=== PATIENT | male | born 1970 | race African-American/Black ===

== ENCOUNTER 2018-10-25 10:17 | Observation (INO) | payer OTHER ==
--- NOTE | 2018-10-25 10:55 | EKG ---
Test Date: 2018-10-25 Test Time: 10:31:25 Medical Radiation Tech: RENEE MEASUREMENT RESULTS: Intervals: Rate: 58 ND: 184 QRSD: 92 QT: 408 QTc: 400 [place]: P: 78 ND: 184 QRS: 63 T: 57 INTERPRETIVE STATEMENTS: Sinus bradycardia Otherwise normal ECG Electronically Signed On 10-25-18 10:54:42 STANDARDS ANALYST by Aston Umanzor
[2018-10-25 10:59] LABS: Absolute Lymphocytes (CBC) 1.8 K/uL (0.7-4.9); Absolute Monocytes 0.3 K/uL (0.1-1.3); Absolute Neutrophil 1.9 K/uL (1.8-8.0); Basophils % 0.8 % (0-1.3); Eosinophils % 2.2 % (0-4.4); Hematocrit 43.3 % (39.6-49.0); Lymphocytes % 43.3 % (15.3-44.8); MPV 9.8 fL (7.6-11.3); Monocytes % 7.8 % (3.3-12.3)
--- NOTE | 2018-10-25 11:11 | RAD REPORT ---
EXAM DESCRIPTION: Tian Single View10/25/2018 11:06 am CLINICAL HISTORY: Chest pain COMPARISON: none FINDINGS: The lungs appear clear of acute infiltrate. The heart is normal size IMPRESSION: No acute abnormalities displayed
[2018-10-25] MEDS ORDERED: ASPIRIN 81 MG CHEWABLE TABLET ONE (11:13)
[2018-10-25 11:16] LABS: Protime INR 1.13
[2018-10-25 11:18] LABS: ALT/SGPT 39 U/L (12-78); AST/SGOT 22 U/L (15-37); Albumin 4.4 g/dL (3.4-5.0); Alkaline Phosphatase 51 U/L (45-117); BUN Blood Urea Nitrogen 11 mg/dL (7-18); Bicarbonate 29 mmol/L (21-32); Bilirubin Direct 0.2 mg/dL (0-0.2); Bilirubin Total 0.7 mg/dL (0.2-1.0); Glucose Level 92 mg/dL (74-106); Magnesium 2.3 mg/dL (1.8-2.4); NT PRO-BNP 8 pg/mL (<125); Potassium 4.3 mmol/L (3.5-5.1); Protein, Total 7.4 g/dL (6.4-8.2); Sodium Level 143 mmol/L (136-145); Troponin (Emerg Dept Use Only) < 0.02 ng/mL (0.0-0.045)
[2018-10-25] MEDS ORDERED: HYDROCODONE/APAP 5/325 MG TAB ONE (12:18)
--- NOTE | 2018-10-25 14:55 | EDPHYS ---
Physician Documentation [facility] Name: Brian Feliz Age: 48 yrs Sex: Male : 1970 Arrival Date: 10/25/2018 Time: 10:20 Bed 17 Private MD: Fer Pineda T ED Physician Hung Mendiola HPI: 10/25 11:44 This 48 yrs old Black Male presents to ER via Ambulatory with complaints of Chest Pain. snw 11:44 Onset: The symptoms/episode began/occurred suddenly, this morning, similar s/s last snw week. Associated signs and symptoms: Pertinent positives: pt feels heart rate and blood pressure has been higher than his norm. Modifying factors: The patient symptoms are alleviated by time. once last week. The patient has not recently seen a physician, the patient's primary care provider is Dr. Dr. Pineda. Historical: - Allergies: 10:29 No Known Allergies; hb - Home Meds: 10:29 ProAir HFA 90 mcg/actuation inhalation HFAA [Active]; Flovent HFA inhalation inhalation hb [Active]; - PMHx: 10:29 Asthma; hb - PSHx: 10:29 Back; hb - Immunization history:: Adult Immunizations up to date. - Social history:: Smoking status: Patient/guardian denies using tobacco. - Ebola Screening: : No symptoms or risks identified at this time. ROS: 11:32 Constitutional: Negative for fever, chills, and weight loss, Eyes: Negative for injury, snw pain, redness, and discharge, ENT: Negative for injury, pain, and discharge, Neck: Negative for injury, pain, and swelling, Respiratory: Negative for shortness of breath, cough, wheezing, and pleuritic chest pain, Abdomen/GI: Negative for abdominal pain, nausea, vomiting, diarrhea, and constipation, Back: Negative for injury and pain, : Negative for injury, bleeding, discharge, and swelling, MS/Extremity: Negative for injury and deformity, Skin: Negative for injury, rash, and discoloration, Neuro: Negative for headache, weakness, numbness, tingling, and seizure. 11:32 Cardiovascular: Positive for chest pain, to left chest with radiation to left arm. Exam: 11:32 Constitutional: This is a well developed, well nourished patient who is awake, alert, snw and in no acute distress. Head/Face: Normocephalic, atraumatic. Eyes: Pupils equal round and reactive to light, extra-ocular motions intact. Lids and lashes normal. Conjunctiva and sclera are non-icteric and not injected. Cornea within normal limits. Periorbital areas with no swelling, redness, or edema. ENT: Nares patent. No nasal discharge, no septal abnormalities noted. Tympanic membranes are normal and external auditory canals are clear. Oropharynx with no redness, swelling, or masses, exudates, or evidence of obstruction, uvula midline. Mucous membranes moist. Neck: Trachea midline, no thyromegaly or masses palpated, and no cervical lymphadenopathy. Supple, full range of motion without nuchal rigidity, or vertebral point tenderness. No Meningismus. Chest/axilla: Normal chest wall appearance and motion. Nontender with no deformity. No lesions are appreciated. 11:32 Cardiovascular: Regular rate and rhythm with a normal S1 and S2. No gallops, murmurs, or rubs. Normal PMI, no JVD. No pulse deficits. Respiratory: Lungs have equal breath sounds bilaterally, clear to auscultation and percussion. No rales, rhonchi or wheezes noted. No increased work of breathing, no retractions or nasal flaring. Abdomen/GI: Soft, non-tender, with normal bowel sounds. No distension or tympany. No guarding or rebound. No evidence of tenderness throughout. Back: No spinal tenderness. No costovertebral tenderness. Full range of motion. Skin: Warm, dry with normal turgor. Normal color with no rashes, no lesions, and no evidence of cellulitis. MS/ Extremity: Pulses equal, no cyanosis. Neurovascular intact. Full, normal range of motion. Neuro: Awake and alert, GCS 15, oriented to person, place, time, and situation. Cranial nerves II-XII grossly intact. Motor strength 5/5 in all extremities. Sensory grossly intact. Cerebellar exam normal. Normal gait. Psych: Awake, alert, with orientation to person, place and time. Behavior, mood, and affect are within normal limits. Vital Signs: 10:27 BP 127 / 82; Pulse 62; Resp 16; Temp 98.4; Pulse Ox 97% on R/A; Pain 0/10; hb 11:34 BP 126 / 94; Pulse 57; Resp 13; Pulse Ox 100% on R/A; tw2 12:30 BP 126 / 94; Pulse 59; Resp 17; Pulse Ox 99% on R/A; tw2 13:38 BP 113 / 74; Pulse 66; Resp 17; Pulse Ox 99% on R/A; tw2 14:41 BP 120 / 78; Pulse 63; Resp 20; Pulse Ox 100% on R/A; tw2 15:36 BP 120 / 78; Pulse 61; Resp 16; Pulse Ox 100% on R/A; tw2 MDM: 10:39 Patient medically screened. snw 11:45 Data reviewed: vital signs, nurses notes. Data interpreted: Pulse oximetry: on room air snw is 100 %. Interpretation: normal. Counseling: I had a detailed discussion with the patient and/or guardian regarding: the historical points, exam findings, and any diagnostic results supporting the discharge/admit diagnosis, the presence of at least one elevated blood pressure reading (>120/80) during this emergency department visit, lab results, radiology results, the need for outpatient follow up, a trestle builder. Physician consultation: Aston Umanzor MD was called at 11:30, was contacted at 11:35, regarding consult, need to evaluate the patient as soon as possible, outpatient follow-up, will work pt in and perform stress test. Special discussion: Based on the patient's history, exam, and Dx evaluation, there is no indication for emergent intervention or inpatient Tx. It is understood by the patient/guardian that if the Sx's persist or worsen they need to return immediately for re-evaluation. Based on the history and exam findings, there is no indication for further emergent testing or inpatient evaluation. I discussed with the patient/guardian the need to see the trestle builder for further evaluation of the symptoms. ED course: will have pt call for appt from ED. Will start ASA 81mg po daily and short term Protonix. 12:04 ED course: pt unable to make appt per office, pt states he feels sore to left chest and snw left arm. Will medicate for pain and recheck enzymes/EKG in 3 hours. 14:53 Physician consultation: Lalit Conti MD was called at 14:53, was contacted at 14:53, snw regarding admission, to the telemetry unit. pt was unable to make appt with Dr. Umanzor' office and he continues to have left chest discomfort/soreness. 16:00 Physician consultation: Lalit Conti MD in the emergency department to see patient at snw 16:00. Physician consultation: Aston Umanzor MD in the emergency department to see patient at 16:01. 10/25 10:38 Order name: Basic Metabolic Panel; Complete Time: 11:28 w 10/25 10:38 Order name: CBC with Diff; Complete Time: 11:13 w 10/25 10:38 Order name: LFT's; Complete Time: 11:28 w 10/25 10:38 Order name: Magnesium; Complete Time: 11:28 w 10/25 10:38 Order name: NT PRO-BNP; Complete Time: 11:28 w 10/25 10:38 Order name: PT-INR; Complete Time: 11:28 w 10/25 10:29 Order name: EKG; Complete Time: 10:30 hb 10/25 10:29 Order name: EKG - Nurse/Tech; Complete Time: 14:11 hb 10/25 10:38 Order name: Troponin (emerg Dept Use Only); Complete Time: 11:28 w 10/25 10:38 Order name: XRAY Chest (1 view); Complete Time: 11:13 10/25 11:09 Order name: Diet Ada 2000 Jean; Complete Time: 11:09 10/25 15:48 Order name: Diet Ada 2000 Jean; Complete Time: 15:48 10/25 10:38 Order name: Cardiac monitoring; Complete Time: 10:48 10/25 10:38 Order name: IV Saline Lock; Complete Time: 10:57 w 10/25 10:38 Order name: Labs collected and sent; Complete Time: 10:52 w 10/25 10:38 Order name: O2 Per Protocol; Complete Time: 10:51 w 10/25 10:38 Order name: O2 Sat Monitoring; Complete Time: 10:51 snw Administered Medications: 11:06 Drug: Aspirin Chewable Tablet 324 mg Route: PO; tw2 12:10 Follow up: Response: No adverse reaction tw2 12:10 Drug: [place] 5 mg-325 mg 1 tabs Route: PO; tw2 14:11 Follow up: Response: No adverse reaction tw2 Disposition: 10/26 06:35 Co-signature as Attending Physician, Hung Mendiola MD I agree with the assessment and kdr plan of care. Disposition: 10/25/18 14:54 Hospitalization ordered by Lalit Conti for Observation. Preliminary diagnosis is Chest pain, unspecified. - Bed requested for Telemetry/MedSurg (observation). - Status is Observation. tw2 - Condition is Stable. - Problem is new. - Symptoms are unchanged. UTI on Admission? No Signatures: Dispatcher [employer] EDMS Hung Mendiola MD MD [facility] Alicia Anton, APPLICATIONS PROJECT MANAGER-C APPLICATIONS PROJECT MANAGER-CsnMadi Martini em1 Janee Whitney, RN RN Patience Ramos RN RN tw2 Corrections: (The following items were deleted from the chart) 10/25 15:34 14:54 Hospitalization Ordered by Lalit Conti MD for Observation. Preliminary diagnosis em1 is Chest pain, unspecified. Bed requested for Telemetry/MedSurg (observation). Status is Observation. Condition is Stable. Problem is new. Symptoms are unchanged. UTI on Admission? No. snw 16:06 15:34 10/25/2018 14:54 Hospitalization Ordered by Lalit Conti MD for Observation. tw2 Preliminary diagnosis is Chest pain, unspecified. Bed requested for Telemetry/MedSurg (observation). Status is Observation. Condition is Stable. Problem is new. Symptoms are unchanged. UTI on Admission? No. em1
--- NOTE | 2018-10-25 14:55 | ER ---
Nurse's Notes [facility] Name: Brian Feliz Age: 48 yrs Sex: Male : 1970 Arrival Date: 10/25/2018 Time: 10:20 Bed 17 Private MD: Fer Pineda T Diagnosis: Chest pain, unspecified Presentation: 10/25 10:27 Presenting complaint: Intermittent sharp left sided chest pain that radiates to left hb arm x 1 week. Pain today started while riding in car, pain resolved BANANA GRADER. Transition of care: patient was not received from another setting of care. Onset of symptoms was October 25, 2018. Risk Assessment: Do you want to hurt yourself or someone else? Patient reports no desire to harm self or others. Initial Sepsis Screen: Does the patient meet any 2 criteria? No. Patient's initial sepsis screen is negative. Does the patient have a suspected source of infection? No. Patient's initial sepsis screen is negative. Care prior to arrival: None. 10:27 Method Of Arrival: Ambulatory hb 10:27 Acuity: JULIÁN 3 hb Historical: - Allergies: 10:29 No Known Allergies; hb - Home Meds: 10:29 ProAir HFA 90 mcg/actuation inhalation HFAA [Active]; Flovent HFA inhalation inhalation hb [Active]; - PMHx: 10:29 Asthma; hb - PSHx: 10:29 Back; hb - Immunization history:: Adult Immunizations up to date. - Social history:: Smoking status: Patient/guardian denies using tobacco. - Ebola Screening: : No symptoms or risks identified at this time. Screenin:29 Abuse screen: Denies threats or abuse. Denies injuries from another. Nutritional hb screening: No deficits noted. Tuberculosis screening: No symptoms or risk factors identified. Fall Risk None identified. Assessment: 10:25 General: Appears in no apparent distress. well groomed, Behavior is calm, cooperative, tw2 appropriate for age. Pain: Denies pain. Complains of pain in chest Pain radiates to left arm Pain began suddenly, "it was like electricity hit me but now its no pain". Neuro: Level of Consciousness is awake, alert, obeys commands, Oriented to person, place, time, situation. Cardiovascular: Heart tones S1 S2 Capillary refill < 3 seconds Patient's skin is warm and dry. Respiratory: Airway is patent Respiratory effort is even, unlabored, Respiratory pattern is regular, symmetrical, Breath sounds are clear bilaterally. GI: No signs and/or symptoms were reported involving the gastrointestinal system. : No signs and/or symptoms were reported regarding the genitourinary system. EENT: No signs and/or symptoms were reported regarding the EENT system. Derm: No signs and/or symptoms reported regarding the dermatologic system. Musculoskeletal: Range of motion: intact in all extremities. 11:35 Reassessment: Patient appears in no apparent distress at this time. No changes from tw2 previously documented assessment. Patient and/or family updated on plan of care and expected duration. Pain level reassessed. Patient is alert, oriented x 3, equal unlabored respirations, skin warm/dry/pink. 12:30 Reassessment: Patient appears in no apparent distress at this time. No changes from tw2 previously documented assessment. Patient and/or family updated on plan of care and expected duration. Pain level reassessed. Patient is alert, oriented x 3, equal unlabored respirations, skin warm/dry/pink. 13:39 Reassessment: Patient appears in no apparent distress at this time. No changes from tw2 previously documented assessment. Patient and/or family updated on plan of care and expected duration. Pain level reassessed. Patient is alert, oriented x 3, equal unlabored respirations, skin warm/dry/pink. 14:41 Reassessment: Patient appears in no apparent distress at this time. No changes from tw2 previously documented assessment. Patient and/or family updated on plan of care and expected duration. Pain level reassessed. Patient is alert, oriented x 3, equal unlabored respirations, skin warm/dry/pink. pt spouse on the phone at this time trying to get pcp to refer them to credit collection specialist for f/u at this time. 15:37 Reassessment: Patient appears in no apparent distress at this time. No changes from tw2 previously documented assessment. Patient and/or family updated on plan of care and expected duration. Pain level reassessed. Patient is alert, oriented x 3, equal unlabored respirations, skin warm/dry/pink. 15:58 Reassessment: Dr. Conti and Dr. Umanzor at bedside at this time. tw2 Vital Signs: 10:27 BP 127 / 82; Pulse 62; Resp 16; Temp 98.4; Pulse Ox 97% on R/A; Pain 0/10; hb 11:34 BP 126 / 94; Pulse 57; Resp 13; Pulse Ox 100% on R/A; tw2 12:30 BP 126 / 94; Pulse 59; Resp 17; Pulse Ox 99% on R/A; tw2 13:38 BP 113 / 74; Pulse 66; Resp 17; Pulse Ox 99% on R/A; tw2 14:41 BP 120 / 78; Pulse 63; Resp 20; Pulse Ox 100% on R/A; tw2 15:36 BP 120 / 78; Pulse 61; Resp 16; Pulse Ox 100% on R/A; tw2 ED Course: 10:20 Patient arrived in ED. mr 10:20 Fer Pineda MD is Private Physician. mr 10:25 Patient maintains SpO2 saturation greater than 95% on room air. tw2 10:28 Triage completed. hb 10:29 Arm band placed on. hb 10:36 Alic[facility] F[facility]-C [facility]. snw 10:36 Hung Mendiola MD is Attending Physician. snw 10:47 Patience Ramos, STEPHANIE is Primary Nurse. tw2 10:50 EKG done, by technical consultant. reviewed by Hung Mendiola MD. at1 10:57 Troponin (emerg Dept Use Only) Sent. mh5 10:57 Basic Metabolic Panel Sent. mh5 10:57 CBC with Diff Sent. mh5 10:57 LFT's Sent. mh5 10:57 Magnesium Sent. mh5 10:57 NT PRO-BNP Sent. mh5 10:57 PT-INR Sent. mh5 10:57 Initial lab(s) drawn, by nm, sent to lab. Inserted saline lock: 22 gauge in right mh5 antecubital area, using aseptic technique. Blood collected. 10:58 Patient has correct armband on for positive identification. Placed in gown. Bed in low mh5 position. Call light in reach. Adult w/ patient. Warm blanket given. ekg monitor on. Pulse ox on. NIBP on. 11:06 XRAY Chest (1 view) In Process Unspecified. EDMS 14:54 Lalit Conti MD is Hospitalizing Provider. snw 15:40 No provider procedures requiring assistance completed. Patient admitted, IV remains in tw2 place. 15:42 Awaiting: attempted to call report was told STEPHANIE Patel just got another pt from PACU and tw2 is the only nurse getting pts at this time and is not ready to receive report but will call me back per . Administered Medications: 11:06 Drug: Aspirin Chewable Tablet 324 mg Route: PO; tw2 12:10 Follow up: Response: No adverse reaction tw2 12:10 Drug: [place] 5 mg-325 mg 1 tabs Route: PO; tw2 14:11 Follow up: Response: No adverse reaction tw2 Outcome: 14:54 Decision to Hospitalize by Provider. snw 15:54 Admitted to Med/surg accompanied by tech, via wheelchair, room 422, with chart, Report tw2 called to STEPHANIE Patel 15:54 Condition: stable 15:54 Instructed on the need for admit. 16:06 Patient left the ED. tw2 Signatures: Dispatcher [employer] EDMS Alicia Anton, CARAMEL CANDY MAKER-C CARAMEL CANDY MAKER-Csnw SilvestreGita mr HairstonMarissa, folding machine operator EKG Tat1 Janee Whitney, RN Patience Avila RN RN 2 Wendy Jessica [facility]
[2018-10-25 16:23] VITALS: O2SAT 100
[2018-10-25 16:27] VITALS: BMI 28.7
--- NOTE | 2018-10-25 18:15 | P.HP ---
Certification for Inpatient Patient admitted to: Observation Practitioner: I am a practitioner with admitting privileges, knowledge of patient current condition, hospital course, and medical plan of care. Services: Services provided to patient in accordance with Admission requirements found in Title 42 Section 412.3 of the Code of Federal Regulations Patient History Date of Service: 10/25/18 Primary Care Provider: Dr. Pineda Reason for admission: Chest pain History of Present Illness: This is a 48-year-old previously healthy male admitted for chest pain. Per patient he had 2 episodes is clutching, sharp chest pain that radiated down to his left arm. The 1st episode was 1 week ago, while he was sitting on his couch. This 2nd episode was the morning prior to admission, where he was sitting in carpool and the pain woke him up from sleep. He reports it as a chest discomfort that goes down his left arm. He attempted to schedule appointment with cardiology clinic, was unsuccessful. In the ER, his chest discomfort had improved, is hemodynamically stable, alert oriented x3 in no acute distress. At the time of my exam in the ER, he stated that his chest discomfort had improved. Dr. Umanzor, cardiology saw patient in ER. Allergies seafood Allergy (Uncoded 10/25/18 16:43) Anaphylaxis Home Medications: Albuterol Sulfate [Proair Respiclick] 2 puff IH DAILY 10/25/18 Epinephrine [Epipen] 0.3 ml SQ PRN 10/25/18 Fluticasone [Flovent Hfa 110*] 2 puff IH DAILYPRN PRN 10/25/18 - Past Medical/Surgical History Diabetic: No -: Traumatic brain injury x 10 years -: Asthma -: Back surgery - Family History Mother Notes: - breast cancer Father -: Diabetes Brother -: Diabetes - Social History Smoking Status: Never smoker Alcohol use: No CD- Drugs: No Caffeine use: Yes Place of Residence: Home Review of Systems 10-point ROS is otherwise unremarkable Physical Examination - Vital Signs Temperature: 97.8 F Blood Pressure: 133/82 Pulse: 55 Respirations: 18 Pulse Ox (%): 97 - Physical Exam General: Alert, In no apparent distress, Oriented x3 HEENT: Atraumatic, PERRLA, Mucous membr. moist/pink, EOMI, Sclerae nonicteric Neck: Supple, 2+ carotid pulse no bruit, No LAD, Without JVD or thyroid abnormality Respiratory: Clear to auscultation bilaterally, Normal air movement Cardiovascular: Regular rate/rhythm, Normal S1 S2 Gastrointestinal: Normal bowel sounds, No tenderness Musculoskeletal: No tenderness Integumentary: No rashes Neurological: Normal gait, Normal speech, Normal strength at 5/5 x4 extr, Normal tone, Normal affect Lymphatics: No axilla or inguinal lymphadenopathy - Studies Laboratory Data (last 24 hrs) 10/25/18 10:50: PT 13.3 H, INR 1.13 10/25/18 10:50: WBC 4.2 L, Hgb 14.5, Hct 43.3, Plt Count 186 10/25/18 10:50: Sodium 143, Potassium 4.3, BUN 11, Creatinine 1.08, Glucose 92, Magnesium 2.3, Total Bilirubin 0.7, AST 22, ALT 39, Alkaline Phosphatase 51 Assessment and Plan - Plan This is a 48-year-old male with: Chest pain, rule out Low risk Cardiology consulted Stress test and echo pending for tomorrow. If normal, discharge home Morphine/nitro as needed for pain. DVT prophylaxis: None GI prophylaxis: None Diet: Heart healthy, NPO after midnight Disposition: Pending cardiac evaluation. Likely discharge home if cardiac evaluation normal. - Advance Directives Does patient have a Living Will: Yes Does patient have a Durable POA for Healthcare: Yes Time Spent Managing Pts Care (In Minutes): 55
[2018-10-25] MEDS: NA CHLORIDE 0.9% 1,000 ML IV SCH (18:30)
--- NOTE | 2018-10-25 21:28 | CON ---
Chief Complaint: Chest pain. History Of Present Illness: Mr. Feliz has had 2 episodes of chest pain. Both occurred while he w as sitting. Both were similar. It started as a sharp fleeting pain in the left side of his chest, t hen he felt it in his left forearm. It did not seem to radiate to any particular fingers, lasted a f ew seconds. One occurred about 10 days ago, one today. He has never had myocardial infarction or [facility]. He is an avid runner, runs more than 15 miles a week. When he runs, he does not have any of t his. Both happened while he was sitting. Since he has been here in the hospital, MT was ruled out. He has normal blood sugar, normal hemoglobin, hematocrit, normal troponins. He takes no medications . He uses no illegal drugs, no tobacco, very rare alcohol. His electrocardiogram is normal. Physical Examination: General: He is alert, oriented, pleasant, not in distress. Lungs: Clear. Cardiac: Normal. Extremities: Normal. No cyanosis, clubbing, or edema. Impression: This is most likely noncardiac pain. We will do a nuclear stress test and echo to see i f there is any sign of heart disease, but the patient seems to be a healthy man with a low risk profi le for developing heart disease at his age. CHOLO Voice ID: [id number] Report ID: [id number]
[2018-10-25 21:46] LABS: Urine Appearance CLEAR; Urine Bilirubin NEGATIVE (NEG); Urine Blood NEGATIVE (NEG); Urine Color YELLOW; Urine Glucose NEGATIVE (NEG); Urine Protein NEGATIVE (NEG); Urine Specific Gravity 1.015 (1.005-1.030); Urine Urobilinogen 0.2 mg/dL (0.2-1.0); Urine pH 5.5 (5.0-7.0)
[2018-10-25 21:47] LABS: Urine Microscopic Reflex NO UMIC
[2018-10-26 03:38] LABS: Absolute Lymphocytes (CBC) 1.6 K/uL (0.7-4.9); Absolute Monocytes 0.3 K/uL (0.1-1.3); Absolute Neutrophil 1.3 K/uL (1.8-8.0); Basophils % 0.6 % (0-1.3); Eosinophils % 4.5 % (0-4.4); Hematocrit 39.8 % (39.6-49.0); Lymphocytes % 47.6 % (15.3-44.8); MPV 10.1 fL (7.6-11.3); Monocytes % 8.8 % (3.3-12.3); RBC Red Blood Cell Count 4.75 M/uL (4.33-5.43)
[2018-10-26 03:55] LABS: ALT/SGPT 32 U/L (12-78); AST/SGOT 19 U/L (15-37); Albumin 3.6 g/dL (3.4-5.0); Alkaline Phosphatase 45 U/L (45-117); BUN Blood Urea Nitrogen 14 mg/dL (7-18); Bicarbonate 28 mmol/L (21-32); Bilirubin Total 0.5 mg/dL (0.2-1.0); Glucose Level 115 mg/dL (74-106); Phosphorus 4.4 mg/dL (2.5-4.9); Potassium 4.3 mmol/L (3.5-5.1); Protein, Total 6.4 g/dL (6.4-8.2); Sodium Level 143 mmol/L (136-145)
[2018-10-26] MEDS: NA CHLORIDE 0.9% 1,000 ML IV SCH (04:43)
--- NOTE | 2018-10-26 13:57 | ECHO ---
HEIGHT: 5 ft 11 in WEIGHT: 206 lb 0 oz DATE OF STUDY: 10/26/[address]: Lalit Conti MD 2-DIMENSIONAL: YES M.MODE: YES DOPPLER: YES COLOR FLOW: YES TDS: NO PORTABLE: NO DEFINITY: NO BUBBLE STUDY: NO DIAGNOSIS: CHEST PAIN CARDIAC HISTORY: CATHERIZATION: NO SURGERY: NO PROSTHETIC VALVE: NO PACEMAKER: NO MEASUREMENTS (cm) DIASTOLIC (NORMALS) SYSTOLIC (NORMALS) IVSd 1.0 (0.6-1.2) LA Diam 3.7 (1.9-4.0) LVEF 66% LVIDd 4.0 (3.5-5.7) LVIDs 2.5 (2.0-3.5) %FS 36% LVPWd 1.3 (0.6-1.2) Ao Diam 3.0 (2.0-3.7) 2 DIMENSIONAL ASSESSMENT: RIGHT ATRIUM: NORMAL LEFT ATRIUM: NORMAL RIGHT VENTRICLE: NORMAL LEFT VENTRICLE: NORMAL TRICUSPID VALVE: NORMAL MITRAL VALVE: NORMAL PULMONIC VALVE: NORMAL AORTIC VALVE: NORMAL PERICARDIAL EFFUSION: NONE AORTIC ROOT: NORMAL LEFT VENTRICULAR WALL MOTION: NORMAL. DOPPLER/COLOR FLOW: MILD TRICUSPID REGURGITATION. COMMENTS: MILD TRICUSPID REGURGITATION. NORMAL RIGHT VENTRICULAR SYSTOLIC PRESSURE. NO WALL MOTION ABNORMALITIES. NO EFFUSION. NORMAL LEFT VENTRICULAR SIZE AND FUNCTION. TECHNOLOGIST: COLTON POWERS
--- NOTE | 2018-10-26 15:01 | TREADMILL ---
70% H.R.: 119 85% H.R.: 145 90% H.R.: 153 100% H.R.: 170 DX: CHEST PAIN Date of Study: 10/26/18 Ht: 5 11 Wt: 206 lb 0 oz Consulting Physician: NICOLÁS MENDIOLA NONE HISTORY: : 48 YEAR OLD MALE WITH COMPLAINTS OF CHEST PAIN. HISTORY OF ASTHMA, NON-SMOKER, NON DRINKER PHYSICIAL EXAMINATION: RESTING B.P.: 118/83 RESTING H.R.: 71 RESTING EKG: SINUS RHYTHM, RIGHT BUNDLE BRANCH BLOCK PROTOCOL: NOLAN CARDIOLITE EXERCISE TIME: 7:49 MAXIMUM HEART RATE: 146 85 % OF PREDICTED B.P. AT PEAK STRESS: 145/72 H.R. AT 1 MINUTE POST EXERCISE: 94 IMPRESSION: TREADMILL STOPPED DUE TO TARGET HEART RATE REACHED, CARDIOLITE INJECTED PER PROTOCOL, SEE NUCLEAR MEDICINE REPORT. NO SUPRA VENTRICULAR TACHYCARDIA, NO VENTRICULAR TACHYCARDIA, NO PREMATURE ATRIAL COMPLEXES, NO PREMATURE VENTRICULAR COMPLEXES. PATIENT REPORTED NO CHEST PAIN, OR TIGHTNESS THROUGHOUT PROCEDURE, OR RECOVERY.
--- NOTE | 2018-10-26 18:23 | P.PN ---
Subjective Date of Service: 10/26/18 Primary Care Provider: Dr. Pineda Chief Complaint: Chest pain Subjective: No new changes, No C/O voiced, Improving Patient seen and examined at bedside. No family at bedside. Chart reviewed and case discussed with nursing staff. Review of Systems 10-point ROS is otherwise unremarkable Physical Examination - Vital Signs Temperature: 99.1 F Blood Pressure: 119/66 Pulse: 74 Respirations: 20 Pulse Ox (%): 99 - Physical Exam General: Alert, In no apparent distress, Oriented x3 HEENT: Atraumatic, PERRLA, EOMI Neck: Supple, JVD not distended Respiratory: Clear to auscultation bilaterally, Normal air movement Cardiovascular: Regular rate/rhythm, Normal S1 S2 Gastrointestinal: Normal bowel sounds, No tenderness Musculoskeletal: No tenderness Integumentary: No rashes Neurological: Normal speech, Normal tone, Normal affect Lymphatics: No axilla or inguinal lymphadenopathy Assessment And Plan - Plan This is a 48-year-old male with: Chest pain, rule out Low risk Cardiology consulted, recommendations appreciated Stress test and echo pending for tomorrow. If normal, discharge home Morphine/nitro as needed for pain. DVT prophylaxis: None GI prophylaxis: None Diet: Heart healthy, NPO after midnight Disposition: Pending cardiac evaluation. Likely discharge home if cardiac evaluation normal.
--- NOTE | 2018-10-26 18:30 | RAD REPORT ---
EXAM DESCRIPTION: NM - Rest Stress Cardiac Imaging - 10/26/2018 6:22 pm CLINICAL HISTORY: Chest pain COMPARISON: None. TECHNIQUE: The patient was administered approximately 10 mCi of Tc 99m Sestamibi prior to resting SP ECT imaging of the heart. The patient was then administered approximately 30 mCi of Tc 99m Sestamibi following exercise or pharmacologic stress. Multiplanar SPECT images were reviewed. FINDINGS: The end diastolic volume is 125 ml, the end systolic volume is 64 ml, and the ejection fra ction is 49 %. No stress-induced ischemic changes seen. Patient has a large fixed defect involving inferior wall fro m base to apex. There is a moderately large fixed defect in the anterior wall also from base to apex. IMPRESSION: No stress-induced ischemia. Large inferior wall and moderate anterior wall scarring. Enlarged end-diastolic volume of 125 milliliters with a 49% ejection fraction.
[2018-10-26 20:27] VITALS: BP 136/81; TEMP 98.2
--- NOTE | 2018-10-27 15:34 | P.SSS ---
Patient History Date of Service: 10/26/18 Primary Care Provider: Dr. Pineda Reason for admission: Chest pain History of Present Illness: This is a 48-year-old previously healthy male admitted for chest pain. Per patient he had 2 episodes is clutching, sharp chest pain that radiated down to his left arm. The 1st episode was 1 week ago, while he was sitting on his couch. This 2nd episode was the morning prior to admission, where he was sitting in carpool and the pain woke him up from sleep. He reports it as a chest discomfort that goes down his left arm. He attempted to schedule appointment with cardiology clinic, was unsuccessful. In the ER, his chest discomfort had improved, is hemodynamically stable, alert oriented x3 in no acute distress. At the time of my exam in the ER, he stated that his chest discomfort had improved. Dr. Umanzor, cardiology saw patient in ER. Allergies seafood Allergy (Uncoded 10/25/18 16:43) Anaphylaxis Home Medications: Albuterol Sulfate [Proair Respiclick] 2 puff IH DAILY 10/25/18 Epinephrine [Epipen] 0.3 ml SQ PRN 10/25/18 Fluticasone [Flovent Hfa 110*] 2 puff IH DAILYPRN PRN 10/25/18 Aspirin [Adult Low Dose Aspirin EC] 81 mg PO DAILY #30 tablet. 10/26/18 - Past Medical/Surgical History Diabetic: No -: Traumatic brain injury x 10 years -: Asthma -: Back surgery - Family History Mother Notes: - breast cancer Father -: Diabetes Brother -: Diabetes - Social History Smoking Status: Never smoker Alcohol use: No CD- Drugs: No Caffeine use: Yes Place of Residence: Home Review of Systems 10-point ROS is otherwise unremarkable Physical Examination - Vital Signs Temperature: 98.2 F Blood Pressure: 136/81 Pulse: 76 Respirations: 16 Pulse Ox (%): 97 - Physical Exam General: Alert, In no apparent distress, Oriented x3 HEENT: Atraumatic, PERRLA, Mucous membr. moist/pink, EOMI, Sclerae nonicteric Neck: Supple, 2+ carotid pulse no bruit, No LAD, Without JVD or thyroid abnormality Respiratory: Clear to auscultation bilaterally, Normal air movement Cardiovascular: Regular rate/rhythm, Normal S1 S2 Gastrointestinal: Normal bowel sounds, No tenderness Musculoskeletal: No tenderness Integumentary: No rashes Neurological: Normal gait, Normal speech, Normal strength at 5/5 x4 extr, Normal tone, Normal affect Lymphatics: No axilla or inguinal lymphadenopathy Treatment Summary: Patient was admitted for chest pain. ACS was ruled out with a negative stress test. Cardiology was consulted. An ECHO was done, which was normal with 66% EF. He was cleared for discharge from cardiology point of view. His symptoms resolved. He remained hemodynamically stable throughout the stay. - Disposition Discharge Date: 10/26/18 Disposition: ROUTINE DISCHARGE Condition: GOOD Consultations: Cardiology Patient Discharge Instructions: OK TO DC IV AND DC HOME. FOLLOW-UP WITH PRIMARY CARE PROVIDER IN 1-2 WEEKS. FOLLOW-UP WITH CARDIOLOGY IN 1-2 WEEKS. RETURN TO THE ER IF symptoms worsens. CALL DR. FOX AT [phone] IF ANY QUESTIONS REGARDING HOSPITAL STAY. PLEASE CALL THE FLOOR AT [phone] IF ANY MEDICATION OR NURSING QUESTIONS. Diet: ADA Activity: Fall precautions Time Spent Managing Pts Care (In Minutes): 45
--- NOTE | 2018-10-28 03:39 | PN ---
Date of Progress Note: 10/26/2018 Mr. Feliz had been admitted to Dr. Conti on 10/25/2018. He was seen by Dr. Umanzor for chest pain. Echocardiogram and stress test were done today. His echocardiogram was normal. His stress test sh owed no significant ischemia. He will be going home today and will follow up in our office on an as- needed basis if his chest pain continues. STEFANIE/MONICA Voice ID: [id number] Report ID: [id number]
== END 2018-10-26 21:15 | disposition home or self-care (01) ==
LOC: ER 10:17 → ERHOLD 15:25 → 4TH 15:54
PROVIDERS: ADMIT Family Medicine; ATTEND Family Medicine
DX: R07.9 Chest pain, unspecified (principal); Z87.820 Personal history of traumatic brain injury; Z79.82 Long term (current) use of aspirin; Z91.013 Allergy to seafood
CPT/HCPCS: 93017; 93005; 93306; 85025 ×2; 80048; 36415; 83735; 84100; 85610; 80076; 81003; 84484 ×3; 80053; 83880; 71045; 78452; 99285; J7030 ×2; A9500; G0378 ×2

== ENCOUNTER 2022-01-01 19:53 | Observation (INO) | payer OTHER ==
--- OUTSIDE RECORDS SUMMARY | 2022-01-01 19:55 | XMS REPORT | Continuity of Care Document ---
:1970 Author Organization [facility] t Address [address] [place] [address] [address] [place] [address] Care Team Providers Name Role Phone MARTI MANNING Attending Clinician Unavailable Lisa Sheets Attending Clinician Lab, Fam Yael I Attending Clinician Unavailable Rima YOUNG Attending Clinician ANENE Attending Clinician Unavailable Doctor Unassigned, Name Attending Clinician Unavailable Problems This patient has no known problems. Allergies, Adverse Reactions, Alerts Allergy Allergy Status Severity Reaction(s) Onset Inactive Treating Comm ents Source Name Type Date Date Clinician NO KNOWN Drug Active NPI:[id number] ALLERGIE Class [id number] S Social History Social Habit Start Date Stop Date Quantity Comments Source Sex Assigned At NPI :[id number] Exposure to SARS-CoV-2 (event) Not sure Smoking Status Start Date Stop Date Source Unknown if ever smoked NPI:[id number] Medications This patient has no known medications. Procedures This patient has no known procedures. Encounters Start End Encounter Admission Attending Care Care Encounter Source Date/Time Date/Time Type Type Clinicians Facility Department ID 2020-11-21 2020-11-21 Outpatient [facility]IGEL [facility] [id number] 00:00:00 00:00:00 MARTI [address] 2020-10-31 2020-10-31 Outpatient [facility] [id number] 00:00:00 00:00:[address] 2020-03-30 2020-03-30 Telephone MIO Sheets [id number] NPI:[id number] 00:00:00 00:00:00 Lisa AVILA [id number] [facility] [id number] 2020-03-27 2020-03-27 Laboratory Lab, Adc Fam Pob I [facility] [id number] NPI:[id number] 13:16:31 13:36:31 Only [facility] [id number] [place] [id number] Professio [id number] [address]al [address] 2020-03-27 2020-03-27 Outpatient R RIMA [facility] [id number] NPI:[id number] 13:00:00 13:00:00 MEREDITH [id number] 1 2020-03-27 2020-03-27 Letter Doctor MIO [id number] NPI:183 00:00:00 00:00:00 (Out) Unassigned, MARGARITA [id number] [place] [facility] [id number] [id number] Results This patient has no known results.
[2022-01-01 20:35] LABS: Absolute Lymphocytes (CBC) 2.2 K/uL (0.7-4.9); Hematocrit 40.2 % (39.6-49.0); Lymphocytes % 41.3 % (15.3-44.8); MPV 9.8 fL (7.6-11.3); RBC Red Blood Cell Count 4.84 M/uL (4.33-5.43)
[2022-01-01 20:41] LABS: Protime INR 1.01
[2022-01-01] MEDS ORDERED: ONDANSETRON 4 MG/2 ML VIAL ONE (20:42)
[2022-01-01] MEDS ORDERED: MORPHINE 2 MG/ML SYR ONE (20:42)
[2022-01-01] MEDS ORDERED: ASPIRIN EC 81 MG TAB PO ONE (20:55)
[2022-01-01 20:58] LABS: ALT/SGPT 47 U/L (12-78); AST/SGOT 27 U/L (15-37); Alkaline Phosphatase 61 U/L (45-117); BUN Blood Urea Nitrogen 10 mg/dL (7-18); Bicarbonate 25 mmol/L (21-32); Bilirubin Direct 0.1 mg/dL (0-0.2); Bilirubin Total 0.4 mg/dL (0.2-1.0); Glucose Level 190 mg/dL (74-106); Magnesium 2.3 mg/dL (1.8-2.4); Sodium Level 140 mmol/L (136-145); Troponin High Sensitivity 5.4 pg/mL (<58.9)
[2022-01-01 21:07] LABS: NT PRO-BNP < 5 pg/mL (<125)
--- NOTE | 2022-01-01 21:22 | RAD REPORT ---
EXAM DESCRIPTION: Tian Single View01/01/2022 9:12 pm CLINICAL HISTORY: Chest pain COMPARISON: 2018 FINDINGS: The lungs appear clear of acute infiltrate. The heart is normal size IMPRESSION: No acute abnormalities displayed
[2022-01-01 21:41] LABS: SARS-COV-2 RT PCR NEGATIVE (NEGATIVE)
--- NOTE | 2022-01-01 22:40 | EDPHYS ---
Physician Documentation [facility] Name: Brian Feliz Age: 51 yrs Sex: Male : 1970 Arrival Date: 01/01/2022 Time: 19:56 Bed 18 Private MD: ED Physician Ventura Grace HPI: 01/01 20:29 This 51 yrs old Black Male presents to ER via Ambulatory with complaints of Arm Pain. mh7 20:29 The patient or guardian reports chest pain that is located primarily in the anterior mh7 chest wall, left. Onset: yesterday. The pain radiates to the left arm. Associated signs and symptoms: Pertinent positives: recent travel, shortness of breath, Pertinent negatives: abdominal pain, cough, diaphoresis, dizziness, headache, lower extremity pain, lower extremity swelling, lightheadedness, nausea, near syncope, palpitations, syncope, vomiting. The chest pain is described as sharp. Duration: The patient or guardian reports multiple episodes, that are intermittent, that wax and wane, with no pattern. Modifying factors: The symptoms are alleviated by nothing. the symptoms are aggravated by nothing. Severity of pain: At its worst the pain was moderate last night, in the emergency department the pain is unchanged. Historical: - Allergies: 20:24 seafood; lp1 - Home Meds: 20:24 Flovent HFA inhalation [Active]; ProAir HFA 90 mcg/actuation inhalation HFAA [Active]; lp1 - PMHx: 20:24 Asthma; Myocardial infarction; lp1 - PSHx: 20:24 Heart Cath; lp1 - Immunization history:: Adult Immunizations up to date. - Social history:: Smoking status: Patient denies any tobacco usage or history of. ROS: 20:29 Constitutional: Negative for fever, chills, and weight loss, Eyes: Negative for injury, mh7 pain, redness, and discharge, ENT: Negative for injury, pain, and discharge, Neck: Negative for injury, pain, and swelling, Abdomen/GI: Negative for abdominal pain, nausea, vomiting, diarrhea, and constipation, Back: Negative for injury and pain, : Negative for injury, bleeding, discharge, and swelling, MS/Extremity: Negative for injury and deformity, Skin: Negative for injury, rash, and discoloration, Neuro: Negative for headache, weakness, numbness, tingling, and seizure, Psych: Negative for depression, anxiety, suicide ideation, homicidal ideation, and hallucinations, Allergy/Immunology: Negative for hives, rash, and allergies, Endocrine: Negative for neck swelling, polydipsia, polyuria, polyphagia, and marked weight changes, Hematologic/Lymphatic: Negative for swollen nodes, abnormal bleeding, and unusual bruising. Exam: 20:29 Constitutional: This is a well developed, well nourished patient who is awake, alert, mh7 and in no acute distress. Head/Face: Normocephalic, atraumatic. Eyes: Pupils equal round and reactive to light, extra-ocular motions intact. Lids and lashes normal. Conjunctiva and sclera are non-icteric and not injected. Cornea within normal limits. Periorbital areas with no swelling, redness, or edema. Neck: Trachea midline, no thyromegaly or masses palpated, and no cervical lymphadenopathy. Supple, full range of motion without nuchal rigidity, or vertebral point tenderness. No Meningismus. Chest/axilla: Normal chest wall appearance and motion. Nontender with no deformity. No lesions are appreciated. Cardiovascular: Regular rate and rhythm with a normal S1 and S2. No gallops, murmurs, or rubs. Normal PMI, no JVD. No pulse deficits. Respiratory: Lungs have equal breath sounds bilaterally, clear to auscultation and percussion. No rales, rhonchi or wheezes noted. No increased work of breathing, no retractions or nasal flaring. Abdomen/GI: Soft, non-tender, with normal bowel sounds. No distension or tympany. No guarding or rebound. No evidence of tenderness throughout. Back: No spinal tenderness. No costovertebral tenderness. Full range of motion. Skin: Warm, dry with normal turgor. Normal color with no rashes, no lesions, and no evidence of cellulitis. MS/ Extremity: Pulses equal, no cyanosis. Neurovascular intact. Full, normal range of motion. Neuro: Awake and alert, GCS 15, oriented to person, place, time, and situation. Cranial nerves II-XII grossly intact. Motor strength 5/5 in all extremities. Sensory grossly intact. Cerebellar exam normal. Normal gait. Psych: Awake, alert, with orientation to person, place and time. Behavior, mood, and affect are within normal limits. Vital Signs: 20:22 BP 139 / 91; Pulse 73; Resp 16; Temp 98.1(O); Pulse Ox 99% on R/A; Weight 95.25 kg (R); lp1 Height 5 ft. 11 in. (180.34 cm); Pain 3/10; 20:33 BP 138 / 86; Pulse 76; Resp 18; Temp 98.5; Pulse Ox 100% on R/A; Pain 0/10; liz 21:28 BP 137 / 84; Pulse 79; Resp 18; Pulse Ox 99% on R/A; Pain 0/10; liz 22:10 BP 132 / 84; Pulse 77; Resp 18; Pulse Ox 97% on R/A; Pain 0/10; liz 23:37 BP 130 / 86; Pulse 64; Resp 16; Pulse Ox 100% on R/A; Pain 0/10; liz 20:22 Body Mass Index 29.29 (95.25 kg, 180.34 cm) lp1 MDM: 22:37 Differential diagnosis: abnormal EKG, acute myocardial infarction, acute pericarditis, mh7 anxiety, coronary artery disease chest wall pain, congestive heart failure costochondritis, esophagitis, gastritis, gastroesophageal reflux disease (GERD), myocarditis, peptic ulcer disease, pericarditis, pleurisy, pneumonia, pneumothorax. HEART Score: History: Highly Suspicious (2), ECG: Non specific repolarization disturbance / LBTB / PM (1), Age: > 45 and < 65 years (1), Risk Factors: 1 or 2 risk factors (1), [Hypertension] Troponin: < or = 1 x Normal Limit (0), Total Score = 5. The patient was given aspirin in the Emergency Department. Data reviewed: vital signs, nurses notes, old medical records, lab test result(s), cardiac enzymes, CBC, electrolytes, EKG, radiologic studies, plain films. Data interpreted: Pulse oximetry: on room air is 97 %. Interpretation: normal. Counseling: I had a detailed discussion with the patient and/or guardian regarding: the historical points, exam findings, and any diagnostic results supporting the discharge/admit diagnosis, the presence of at least one elevated blood pressure reading (>120/80) during this emergency department visit, lab results, radiology results, the need for further work-up and treatment in the [facility]. Response to treatment: the patient's symptoms have mildly improved after treatment. 22:39 Patient medically screened. [facility] 01/01 20:28 Order name: Basic Metabolic Panel; Complete Time: 21:09 [facility] 01/01 20:28 Order name: CBC with Diff; Complete Time: 20:59 [facility] 01/01 20:28 Order name: LFT's; Complete Time: 21: [facility] 01/01 20:28 Order name: Magnesium; Complete Time: 21: [facility] 01/01 20:28 Order name: NT PRO-BNP; Complete Time: 21: [facility] 01/01 20:28 Order name: PT-INR; Complete Time: 20:59 [facility] 01/01 20:28 Order name: Troponin HS; Complete Time: 21: [facility] 01/01 20:28 Order name: XRAY Chest (1 view); Complete Time: 21:52 [facility] 01/01 20:28 Order name: EKG; Complete Time: 20:29 [facility] 01/01 20:31 Order name: COVID-19/FLU A+B (Document "Date of Onset" if Symptomatic); Complete Time: [facility] 21:52 01/01 21:10 Order name: D-Dimer [facility] 01/01 20:28 Order name: Cardiac monitoring; Complete Time: 20:45 [facility] 01/01 20:28 Order name: EKG - Nurse/Tech; Complete Time: 20:45 [facility] 01/01 20:28 Order name: IV Saline Lock; Complete Time: 20:46 [facility] 01/01 20:28 Order name: Labs collected and sent; Complete Time: 20:46 [facility] 01/01 20:28 Order name: O2 Per Protocol; Complete Time: 20:46 [facility] 01/01 20:28 Order name: O2 Sat Monitoring; Complete Time: 20:46 [facility] 01/01 22:34 Order name: Urine Dipstick-Ancillary (obtain specimen) [facility] Administered Medications: 20:45 Drug: morphine 2 mg Route: IVP; Site: right forearm; liz 22:25 Follow up: Response: Pain is decreased liz 20:45 Drug: Zofran (Ondansetron) 4 mg Route: IVP; Site: right forearm; liz 22:25 Follow up: Response: No adverse reaction liz 20:52 Drug: Aspirin Chewable Tablet 324 mg Route: PO; liz 22:25 Follow up: Response: No adverse reaction liz Disposition Summary: 01/01/22 22:39 Hospitalization Ordered Hospitalization Status: Observation [facility] Provider: Javier Wagner Location: Telemetry/MedSurg (observation) [facility] Condition: Stable mh Problem: new mh7 Symptoms: have improved mh7 Bed/Room Type: Standard [facility] Room Assignment: 230(01/01/22 22:55) mw Diagnosis - Chest pain, unspecified mh7 Forms: - Medication Reconciliation Form [facility] - SBAR form [facility] Signatures: Dispatcher [employer] EDFiordaliza Thomason RN RN Elma Vargas RN RN lp1 Ventura Grace MD MD [facility] January Ingram RN RN liz Corrections: (The following items were deleted from the chart) 22:55 22:39 mh7 mw
--- NOTE | 2022-01-01 22:40 | ER ---
Nurse's Notes [facility] Name: Brian Feliz Age: 51 yrs Sex: Male : 1970 Arrival Date: 01/01/2022 Time: 19:56 Bed 18 Private MD: Diagnosis: Chest pain, unspecified Presentation: 01/01 20:22 Chief complaint: Patient states: Reports episodes of left arm pain yesterday, more lp1 significant today with shortness of breath; Previous [place] with similar symptoms. Coronavirus screen: At this time, the client does not indicate any symptoms associated with coronavirus-19. Ebola Screen: No symptoms or risks identified at this time. Initial Sepsis Screen: Does the patient meet any 2 criteria? No. Patient's initial sepsis screen is negative. Does the patient have a suspected source of infection? No. Patient's initial sepsis screen is negative. Risk Assessment: Do you want to hurt yourself or someone else? Patient reports no desire to harm self or others. Onset of symptoms was January 01, 2022. 20:22 Method Of Arrival: Ambulatory lp1 20:22 Acuity: JULIÁN 2 lp1 Triage Assessment: 22:47 General: Appears in no apparent distress. Behavior is calm, cooperative. liz Historical: - Allergies: 20:24 seafood; lp1 - Home Meds: 20:24 Flovent HFA inhalation [Active]; ProAir HFA 90 mcg/actuation inhalation HFAA [Active]; lp1 - PMHx: 20:24 Asthma; Myocardial infarction; lp1 - PSHx: 20:24 Heart Cath; lp1 - Immunization history:: Adult Immunizations up to date. - Social history:: Smoking status: Patient denies any tobacco usage or history of. Screenin:34 Abuse screen: Denies threats or abuse. Denies injuries from another. Nutritional liz screening: No deficits noted. Tuberculosis screening: No symptoms or risk factors identified. Fall Risk None identified. Assessment: 20:32 Reassessment: Patient appears in no apparent distress at this time. No changes from liz previously documented assessment. Per the pt's report, having arrived in the room \\T\\ 2011, that he is not having any pain, now, but earlier, he had "discomfort" and left arm pain, yesterday. Family is at bedside. Pain: Denies pain. 22:11 Reassessment: The pt is sitting on the edge of the bed with his . He reports he liz "feels good". He appears to be in NAD. 23:13 Reassessment: The pt has a room assignment, but when I went to check the orders, a liz urine dip has now been ordered. I asked the pt to provide on and he stated he couldn't, as he "just went". I asked him to try and he asked for water and I complied. Registration will be called to "flip" the pt. 23:17 Reassessment: I told my charge nurse of my quandary with the urine dip order and she liz said that I could transfer him and pass it on in report. SBAR printed. The pt will be transferred via wc, after report is called. 23:21 Reassessment: The tech is readying the pt to go upstairs and I am on hold, waiting to liz give report. 23:22 Reassessment: The nurse is with the last pt brought up and will call me back jonnie. liz 23:35 Reassessment: I've called, again, to give report. I am on hold, but the pt is readied liz to go upstairs, via wc. The tech will take him. 23:41 Reassessment: Report given and I informed them about the urine that needs to be liz collected. Vital Signs: 20:22 BP 139 / 91; Pulse 73; Resp 16; Temp 98.1(O); Pulse Ox 99% on R/A; Weight 95.25 kg (R); lp1 Height 5 ft. 11 in. (180.34 cm); Pain 3/10; 20:33 BP 138 / 86; Pulse 76; Resp 18; Temp 98.5; Pulse Ox 100% on R/A; Pain 0/10; liz 21:28 BP 137 / 84; Pulse 79; Resp 18; Pulse Ox 99% on R/A; Pain 0/10; liz 22:10 BP 132 / 84; Pulse 77; Resp 18; Pulse Ox 97% on R/A; Pain 0/10; liz 23:37 BP 130 / 86; Pulse 64; Resp 16; Pulse Ox 100% on R/A; Pain 0/10; liz 20:22 Body Mass Index 29.29 (95.25 kg, 180.34 cm) lp1 ED Course: 19:56 Patient arrived in ED. ja2 20:14 Ventura Grace MD is Attending Physician. [facility] 20:17 January Ingram, RN is Primary Nurse. liz 20:23 Triage completed. lp1 20:23 Arm band placed on. lp1 20:24 Patient has correct armband on for positive identification. Placed in gown. Bed in low lp1 position. Client placed on continuous cardiac and pulse oximetry monitoring. NIBP monitoring applied. 20:34 No provider procedures requiring assistance completed. Inserted saline lock: 20 gauge liz in right forearm, using aseptic technique. 20:45 COVID-19/FLU A+B (Document "Date of Onset" if Symptomatic) Sent. liz 20:46 Basic Metabolic Panel Sent. liz 20:46 Troponin HS Sent. liz 20:46 NT PRO-BNP Sent. liz 20:46 Magnesium Sent. liz 20:46 LFT's Sent. liz 21:14 XRAY Chest (1 view) In Process Unspecified. EDMS 22:11 D-Dimer Sent. liz 22:38 Javier Wagner MD is Hospitalizing Provider. [facility] 22:47 Patient admitted, IV remains in place. liz Administered Medications: 20:45 Drug: morphine 2 mg Route: IVP; Site: right forearm; liz 22:25 Follow up: Response: Pain is decreased liz 20:45 Drug: Zofran (Ondansetron) 4 mg Route: IVP; Site: right forearm; liz 22:25 Follow up: Response: No adverse reaction liz 20:52 Drug: Aspirin Chewable Tablet 324 mg Route: PO; liz 22:25 Follow up: Response: No adverse reaction liz Outcome: 22:39 Decision to Hospitalize by Provider. [facility] 22:47 Condition: stable liz 22:47 Admitted to liz 07 00:01 Patient left the ED. liz Signatures: Dispatcher [employer] EDMS lEma Vargas, STEPHANIE RN 1 Ventura Grace MD MD [facility] Vero Zayas [facility] January Ingram RN RN liz
--- NOTE | 2022-01-01 22:57 | P.HP ---
Certification for Inpatient Patient admitted to: Observation With expected LOS: <2 Midnights Patient will require the following post-hospital care: None Practitioner: I am a practitioner with admitting privileges, knowledge of patient current condition, hospital course, and medical plan of care. Services: Services provided to patient in accordance with Admission requirements found in Title 42 Section 412.3 of the Code of Federal Regulations Patient History Date of Service: 01/01/22 Reason for admission: Chest pain History of Present Illness: 51-year-old male patient with history of CAD, asthma presents the emergency department for left arm pain. Patient reports 4-5 episodes in the last 24 to 48 hours as experienced patient was evaluated here in the emergency department his initial troponin sharp pain to the left chest/arm followed by dull ache. Patient reports that the symptoms are similar to back in 2019 when he had an MS. He had heart catheterization in 2019 that was reportedly negative. Patient's work-up here in the emergency department his initial troponin is negative EKG was unremarkable chest x-ray acute findings ED prior wishes to admit under observation for ACS rule out. Allergies seafood Allergy (Uncoded 10/25/18 16:43) Anaphylaxis Home Medications: Albuterol Sulfate [Proair Respiclick] 2 puff IH DAILY 10/25/18 Epinephrine [Epipen] 0.3 ml SQ PRN 10/25/18 Fluticasone [Flovent Hfa 110*] 2 puff IH DAILYPRN PRN 10/25/18 Aspirin [Adult Low Dose Aspirin EC] 81 mg PO DAILY #30 tablet. 10/26/18 - Past Medical/Surgical History Diabetic: No -: Traumatic brain injury x 10 years -: Asthma -: CAD -: Back surgery Psychosocial/ Personal History: Patient lives at home with his - Family History Mother Notes: - breast cancer Father -: Diabetes Brother -: Diabetes - Social History Smoking Status: Never smoker Alcohol use: No CD- Drugs: No Caffeine use: Yes Place of Residence: Home Review of Systems 10-point ROS is otherwise unremarkable Cardiovascular: Chest Pain, As per HPI Physical Examination - Physical Exam General: Alert, In no apparent distress, Oriented x3 HEENT: Atraumatic, PERRLA, Mucous membr. moist/pink, EOMI, Sclerae nonicteric Neck: Supple, 2+ carotid pulse no bruit, No LAD, Without JVD or thyroid abnormality Respiratory: Clear to auscultation bilaterally, Normal air movement Cardiovascular: Regular rate/rhythm, Normal S1 S2 Gastrointestinal: Normal bowel sounds, No tenderness Musculoskeletal: No tenderness Integumentary: No rashes Neurological: Normal speech, Normal strength at 5/5 x4 extr, Normal tone, Normal affect - Studies Laboratory Data (last 24 hrs) 01/01/22 20:20: PT 11.1, INR 1.01 01/01/22 20:20: WBC 5.4, Hgb 13.7, Hct 40.2, Plt Count 207 01/01/22 20:20: Sodium 140, Potassium 4.0, BUN 10, Creatinine 1.20, Glucose 190 H, Magnesium 2.3, Total Bilirubin 0.4, AST 27, ALT 47, Alkaline Phosphatase 61 Assessment and Plan - Plan Assessment: Chest pain rule ACS Hyperglycemia History of asthma Plan: Chest pain rule ACS: Troponin, monitor on telemetry, cardiology consult in place, aspirin, statin, beta-bereket therapy. As needed pain medicine/antiemetics. 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 Hyperglycemia: Obtain A1c recommend follow-up with PCP History of asthma: As needed nebulizer treatments DVT PPX: Lovenox Code status: Full Discharge Plan: Home Plan to discharge in: 24 Hours - Advance Directives Does patient have a Living Will: Yes Does patient have a Durable POA for Healthcare: Yes - Code Status/Comfort Care Code Status Assessed: Yes (Full code) Critical Care: No Time Spent Managing Pts Care (In Minutes): 55
[2022-01-01] MEDS ORDERED: MORPHINE 2 MG/ML SYR IV PRN (23:54)
[2022-01-01] MEDS ORDERED: ONDANSETRON 4 MG/2 ML VIAL IV PRN (23:54)
[2022-01-02 00:21] VITALS: BMI 28.0
[2022-01-02 05:51] LABS: Absolute Lymphocytes (CBC) 1.9 K/uL (0.7-4.9); Hematocrit 38.9 % (39.6-49.0); Lymphocytes % 49.7 % (15.3-44.8); MPV 9.7 fL (7.6-11.3); RBC Red Blood Cell Count 4.67 M/uL (4.33-5.43)
[2022-01-02] MEDS ORDERED: METOPROLOL TAR 25 MG TAB PO SCH (06:00)
[2022-01-02 06:09] LABS: Albumin 3.6 g/dL (3.4-5.0); Bilirubin Total 0.3 mg/dL (0.2-1.0); Potassium 4.1 mmol/L (3.5-5.1); Protein, Total 6.5 g/dL (6.4-8.2); Troponin High Sensitivity 6.6 pg/mL (<58.9)
[2022-01-02] MEDS ORDERED: ENOXAPARIN 40 MG/0.4 ML SQ SCH (09:00)
[2022-01-02] MEDS ORDERED: ASPIRIN EC 81 MG TAB PO SCH (09:00)
--- NOTE | 2022-01-02 09:23 | EKG ---
Test Date: 2022-01-01 Test Time: 20:13:46 Lead Sharepoint Developer: JONATAN MEASUREMENT RESULTS: Intervals: Rate: 73 IA: 154 QRSD: 92 QT: 394 QTc: 434 [place]: P: 74 IA: 154 QRS: 45 T: 21 INTERPRETIVE STATEMENTS: Normal sinus rhythm Possible Left atrial enlargement Borderline ECG Compared to ECG 10/25/2018 10:31:25 Sinus bradycardia no longer present Electronically Signed On 01-02-22 09:22:14 CDT by Chris Tran
--- NOTE | 2022-01-02 11:33 | CON ---
Date of Consultation: 01/02/2022 The patient admitted on 01/01/[address] Mckeon for atypical chest pain. I saw the patient on 01/02. History Of Present Illness: Mr. Feliz is a 51-year-old black male without any significant past ca ia history. He has a history of asthma in 2019. Had a normal stress test, normal echocardiogram. Continued to have chest pain and underwent a heart catheterization under the care of Dr. Devonte logan in [place], which was normal. He comes in with left arm pain below the elbow that is sharp, stabbing type, that occurred while he was driving. It occurred 3 to 4 times over the last 3 to 4 day s lasting a minute or 2 without any nausea, vomiting, diaphoresis, PND, orthopnea, palpitations, sync ope. His EKG was normal. Chest x-ray was normal. Troponin was normal. His glucose was 187. Past Medical History: As stated above. Allergies: INCLUDE SEAFOOD. Review of Systems: Negative. Social History: Negative. Family History: Noncontributory. Medications: At home include inhalers, aspirin, and EpiPen. Physical Examination: Vital Signs: He appeared his stated age, in no acute distress. Vital Signs: Stable, afebrile. HEENT: Negative. Neck: Supple without any bruit, lymphadenopathy, JVD, or thyromegaly. Chest: Clear to auscultation and percussion. Cardiac: Revealed a regular rhythm and rate. No murmurs, gallops, or rubs. Abdomen: Benign. Extremities: Revealed no clubbing, cyanosis, or edema. Diagnostic Data: Normal. Impression And Plan: Atypical chest pain, previous heart catheterization that is normal. Myocardial infarction ruled out. I think this is truly musculoskeletal or neurological in nature. Nevertheles s, I am comfortable with him going home. He does have some glucose intolerance and I recommended annabel t he watch his carbohydrate and I think an outpatient echocardiogram and MPI are reasonable. He can go home otherwise. Case was discussed with Dr. Mckeon. STEFANIE/MONICA Voice ID: [id number] Report ID: [id number]
[2022-01-02 11:43] VITALS: O2SAT 96
--- NOTE | 2022-01-02 11:49 | P.DS ---
Admission Date: 01/01/22 Discharge Date: 01/02/22 Disposition: ROUTINE DISCHARGE Discharge Condition: FAIR Reason for Admission: Chest pain - Problems (1) Chest pain Current Visit: Yes Status: Acute (2) Hyperlipidemia Current Visit: Yes Status: Acute (3) History of asthma Current Visit: Yes Status: Acute Brief History of Present Illness: 51-year-old male patient with history of CAD, asthma presents the emergency department for left arm pain. Patient reported 4-5 episodes in the last 24 to 48 hours. He reported sharp pain to the left chest/arm followed by dull ache. Patient reports that the symptoms are similar to back in 2019 when he had an DC. He had heart catheterization in 2019 that was reportedly negative. Patient's work-up here in the emergency department his initial troponin is negative EKG was unremarkable chest x-ray acute findings. Patient placed under observation for ACS rule out. Hospital Course: Troponin trended negative. Patient was asymptomatic during the hospital stay. He was seen and evaluated by cardiology-Dr. Tran who felt his chest pain is atypical. History of normal coronary arteries by cardiac catheterization 2018. Patient deemed stable for discharge per Dr. Tran. Dr. Tran will follow up with the patient next week for arrangement for stress test. Patient lipid profile in noted to be elevated he is prescribed Lipitor. He is also informed to continue taking daily aspirin. Blood pressure was within normal range. Vital Signs/Physical Exam: Temp Pulse Resp BP Pulse Ox 97.7 F 109 H 15 130/69 84 L 01/02/22 08:00 01/02/22 08:00 01/02/22 08:00 01/02/22 08:00 01/02/22 08:00 General: Alert, In no apparent distress, Oriented x3 HEENT: Mucous membr. moist/pink Neck: JVD not distended Respiratory: Clear to auscultation bilaterally, Normal air movement Cardiovascular: Regular rate/rhythm, Normal S1 S2 Gastrointestinal: Soft and benign, Non-distended Musculoskeletal: No swelling Integumentary: No rashes, No cyanosis Neurological: Normal strength at 5/5 x4 extr Laboratory Data at Discharge: WBC 3.8 K/uL (4.3-10.9) L D 01/02/22 05:26 Hgb 13.3 g/dL (13.6-17.9) L 01/02/22 05:26 Hct 38.9 % (39.6-49.0) L 01/02/22 05:26 Plt Count 177 K/uL (152-406) 01/02/22 05:26 PT 11.1 SECONDS (9.5-12.5) 01/01/22 20:20 INR 1.01 01/01/22 20:20 Sodium 145 mmol/L (136-145) 01/02/22 05:26 Potassium 4.1 mmol/L (3.5-5.1) 01/02/22 05:26 BUN 9 mg/dL (7-18) 01/02/22 05:26 Creatinine 1.10 mg/dL (0.55-1.3) 01/02/22 05:26 Glucose 187 mg/dL (74-106) H 01/02/22 05:26 Magnesium 2.3 mg/dL (1.8-2.4) 01/01/22 20:20 Total Bilirubin 0.3 mg/dL (0.2-1.0) 01/02/22 05:26 AST 20 U/L (15-37) 01/02/22 05:26 ALT 40 U/L (12-78) 01/02/22 05:26 Alkaline Phosphatase 56 U/L (45-117) 01/02/22 05:26 Triglycerides 114 mg/dL (<150) 01/02/22 05:26 Cholesterol 209 mg/dL (<200) H 01/02/22 05:26 HDL Cholesterol 49 mg/dL (40-60) 01/02/22 05:26 Cholesterol/HDL Ratio 4.27 01/02/22 05:26 Home Medications: Albuterol Sulfate [Proair Respiclick] 2 puff IH DAILY 10/25/18 Epinephrine [Epipen] 0.3 ml SQ PRN 10/25/18 Fluticasone [Flovent Hfa 110*] 2 puff IH DAILYPRN PRN 10/25/18 Aspirin [Adult Low Dose Aspirin EC] 81 mg PO DAILY #30 tablet. 10/26/18 Atorvastatin Calcium [Lipitor] 40 mg PO BEDTIME #30 tab 01/02/22 New Medications: Atorvastatin Calcium [Lipitor] 40 mg PO BEDTIME #30 tab Diet: AHA Activity: Ad marsha Followup: Chris Tran MD [ACTIVE - CAN ADMIT] - 1 Week NONE,NONE [Primary Care Provider] -
[2022-01-02 12:33] VITALS: BP 121/65; TEMP 98.1
[2022-01-02] MEDS ORDERED: ATORVASTATIN 40 MG TAB PO SCH (21:00)
== END 2022-01-02 12:45 | disposition home or self-care (01) ==
LOC: ER 19:53 → ERHOLD 22:49 → 2ND 23:17
PROVIDERS: ADMIT Internal Medicine; ATTEND Internal Medicine
DX: R07.89 Other chest pain (principal); R73.9 Hyperglycemia, unspecified; J45.909 Unspecified asthma, uncomplicated; E78.5 Hyperlipidemia, unspecified; M79.602 Pain in left arm; I25.10 Atherosclerotic heart disease of native coronary artery without angina pectoris; I25.2 Old myocardial infarction; Z20.822 Contact with and (suspected) exposure to COVID-19; Z79.82 Long term (current) use of aspirin; Z91.013 Allergy to seafood; Z87.820 Personal history of traumatic brain injury; Z80.3 Family history of malignant neoplasm of breast; Z83.3 Family history of diabetes mellitus
CPT/HCPCS: 93005; 85025 ×2; 80048; 36415; 83735; 85610; 80061; 85379; 80076; 83036; 84484 ×3; 80053; 83880; 0240U; 71045; 96375; 96374; 99285; J1650; J2270; J2405; G0378 ×2

== ENCOUNTER 2023-07-22 10:43 | Emergency (ER) | payer OTHER ==
--- OUTSIDE RECORDS SUMMARY | 2023-07-22 10:46 | XMS REPORT | Continuity of Care Document ---
:1970 Author Organization [facility] t Address [address] [place] [address] Care Team Providers Name Role Phone Didier ROSA, Devonte Salazar Primary Care Physician Shahrzad Hayward Attending Clinician Unavailable MARTI MANNING Attending Clinician Unavailable Lisa Sheets Attending Clinician Lab, [facility] Pob I Attending Clinician Unavailable Liz Hurley Attending Clinician LIZ ABARCA Attending Clinician Unavailable Doctor Unassigned, [place]oday Attending Clinician Unavailable Problems Condition Condition Condition Status Onset Resolution Last Treating Co mments Source Name Details Category Date Date Treatment Clinician Date 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 Added automatic ally from request for surgery [id number] Asthma, Problem Commo n unspecifie Spirit d asthma - [facility] d, unspecifie d whether persistent [id number] Seafood Problem Common allergy [facility] [id number] Environmen Problem Co mmon august Spirit allergies - [facility] [id number] Sickle-matthew Problem Com mon l trait Spirit [facility] [id number] [place], [place] [id number] joint, Spirit knee, - [facility] right [facility] [id number] Leukopenia Problem Com mon , Spirit unspecifie - [facility] d type [facility] [id number] Elevated Problem Comm on LDL Spirit cholestero - CHI l level [facility] Allergies, Adverse Reactions, Alerts Allergy Allergy Status Severity Reaction(s) Onset Inactive Treating Comm ents Source Name Type Date Date Clinician Taya Paige Active Method i h ty to 01-10 st Derived adverse 00:00: Hospita reaction 00 l s to drug NO KNOWN Drug Active Univers ALLERGIE Class ity of S [facility] Seafood Seafood Active Unknown Common Spirit [facility] Family History Family Member Diagnosis Comments Start Date Stop Date Source Natural father [facility] Natural mother [facility] Social History Social Habit Start Date Stop Date Quantity Comments Source History of Tobacco Common Spirit - Use [facility] Sexual orientation [facility] Exposure to Not sure University of SARS-CoV-2 (event) [facility] History of Social 2019-04-21 2019-04-[address] function 00:00:00 00:00:00 Hospital Alcohol intake 2019-01-10 2019-01-10 Current [facility] 00:[facility]:00 00:00:00 non-drinker of Hospital alcohol (finding) Tobacco use and 2019-01-09 2019-01-09 Smokeless [facility] exposure 00:00:00 00:00:00 tobacco non-user Hospital Sex Assigned At [birth year] [facility] 00:00:[facility] 00:[facility]:00 Hospital Smoking Status Start Date Stop Date Source Unknown if ever smoked [facility]it y [facility] Never Smoker Common Spirit [facility] Medications Ordered Filled Start Stop Current Ordering Indication Dosage Frequency Signature Comments Components Source Medication Medication Date Date Medication? Clinician (SIG) Name Name albuterol Yes 2.5mg Q6H Take 2.5 Met hodi (ACCUNEB) 5-[address] 2.5 mg /3 12:39: nebulizati Ho spita mL (0.083 43 on every 6 l %) (six) nebulizer hours as solution needed for wheezing. aspirin Yes 81mg QD Take 81 mg Meth karla (ECOTRIN) 5-[address] 81 MG 12:39: daily. Hospita enteric 43 l coated tablet ranolazine Yes 500mg Take 500 Me thodi (RANEXA) 5-[address] 500 MG 12 12:39: mouth as Hosp tarcy hr ER 43 needed. l tablet Kenalog Kenalog No 40mg Common (Triamcinol (Triamcinol 6-09 S pirit one) one) 00:00: - [facility] Chavez Kenalog 0 No 40mg Common (Triamcinol (Triamcinol 6-09 S pirit one) one) 00:00: - [facility] Marquisealog Kenalog 0 No 40mg Common (Triamcinol (Triamcinol 6-09 S pirit one) one) 00:00: - [facility] Kenalog Kenalog 2017-0 No 40mg Common (Triamcinol (Triamcinol 6-09 S pirit one) one) 00:00: - [facility] Kenalog Kenalog 2017-0 No 40mg Common (Triamcinol (Triamcinol 6-09 S pirit one) one) 00:00: - [facility] Kenalog Kenalog 0 No 40mg Common (Triamcinol (Triamcinol 6-09 S pirit one) one) 00:00: - [facility] Kenalog Kenalog 2017-0 No 40mg Common (Triamcinol (Triamcinol 6-09 S pirit one) one) 00:00: - [facility] Kenalog Kenalog 2017-0 No 40mg Common (Triamcinol (Triamcinol 3-17 S pirit one) one) 00:00: - [facility]I 00 [facility] Dexamethaso Dexamethaso 2018-0 No 10mg Common ne ne 3-17 Spirit 00:00: - CHI 00 [facility] Dexamethaso Dexamethaso 2018-0 No 10mg Common ne ne 3-17 Spirit 00:00: - [facility]I 00 [facility] Kenalog Kenalog 2018-0 No 40mg Common (Triamcinol (Triamcinol 3-17 S pirit one) one) 00:00: - [facility]I 00 [facility] Kenalog Kenalog 2018-0 No 40mg Common (Triamcinol (Triamcinol 3-17 S pirit one) one) 00:00: - [facility]I 00 [facility] Dexamethaso Dexamethaso 2018-0 No 10mg Common ne ne 3-17 Spirit 00:00: - [facility]I 00 [facility] Kenalog Kenalog 2018-0 No 40mg Common (Triamcinol (Triamcinol 3-17 S pirit one) one) 00:00: - [facility]I 00 [facility] Dexamethaso Dexamethaso 2018-0 No 10mg Common ne ne 3-17 Spirit 00:00: - [facility]I 00 [facility] Kenalog Kenalog 2018-0 No 40mg Common (Triamcinol (Triamcinol 3-17 S pirit one) one) 00:00: - [facility]I 00 [facility] Dexamethaso Dexamethaso 2018-0 No 10mg Common ne ne 3-17 Spirit 00:00: - [facility] 00 [facility] Kenalog Kenalog 2018-0 No 40mg Common (Triamcinol (Triamcinol 3-17 S pirit one) one) 00:00: - [facility]I 00 [facility] Dexamethaso Dexamethaso 2018-0 No 10mg Common ne ne 3-17 Spirit 00:00: - [facility]I 00 [facility] Kenalog Kenalog 2018-0 No 40mg Common (Triamcinol (Triamcinol 3-17 S pirit one) one) 00:00: - [facility]I 00 [facility] Dexamethaso Dexamethaso 2018-0 No 10mg Common ne ne 3-17 Spirit 00:00: - [facility] 00 [facility] EPINEPHrine EPINEPHrine No EPINEPHrin 0.3 0.3 e 0.3 MG/0.3ML MG/0.3ML MG/0.3ML Albuterol Albuterol No 1{puff_ 6xD Albuterol Sulfate HFA Sulfate HFA as_need Sulfate 108 (90 108 (90 ed} HFA 108 Base) Base) (90 Base) MCG/ACT MCG/ACT MCG/ACT Flovent HFA Flovent HFA No 2{puffs BID Flovent 110 MCG/ACT 110 MCG/ACT } HFA 110 MCG/ACT Albuterol Albuterol No 1{puff_ 6xD Albuterol Sulfate HFA Sulfate HFA as_need Sulfate 108 (90 108 (90 ed} HFA 108 Base) Base) (90 Base) MCG/ACT MCG/ACT MCG/ACT EPINEPHrine EPINEPHrine No EPINEPHrin 0.3 0.3 e 0.3 MG/0.3ML MG/0.3ML MG/0.3ML Albuterol Albuterol No 1{puff_ 6xD Albuterol Sulfate HFA Sulfate HFA as_need Sulfate 108 (90 108 (90 ed} HFA 108 Base) Base) (90 Base) MCG/ACT MCG/ACT MCG/ACT Flovent HFA Flovent HFA No 2{puffs BID Flovent 110 MCG/ACT 110 MCG/ACT } HFA 110 MCG/ACT Albuterol Albuterol No 1{puff_ 6xD Albuterol Sulfate HFA Sulfate HFA as_need Sulfate 108 (90 108 (90 ed} HFA 108 Base) Base) (90 Base) MCG/ACT MCG/ACT MCG/ACT EPINEPHrine EPINEPHrine No EPINEPHrin 0.3 0.3 e 0.3 MG/0.3ML MG/0.3ML MG/0.3ML Singulair Singulair No Singulair Flovent HFA Flovent HFA No 2{puffs BID Flovent 110 MCG/ACT 110 MCG/ACT } HFA 110 MCG/ACT flovent HFA flovent HFA No flovent HFA Augmentin Augmentin No 1{table BID Augmentin 875-125 MG 875-125 MG t} 875-125 MG Albuterol Albuterol No 1{puff_ 6xD Albuterol Sulfate HFA Sulfate HFA as_need Sulfate 108 (90 108 (90 ed} HFA 108 Base) Base) (90 Base) MCG/ACT MCG/ACT MCG/ACT Flonase Flonase No Flonase EPINEPHrine EPINEPHrine No EPINEPHrin 0.3 0.3 e 0.3 MG/0.3ML MG/0.3ML MG/0.3ML Singulair Singulair No Singulair Flovent HFA Flovent HFA No 2{puffs BID Flovent 110 MCG/ACT 110 MCG/ACT } HFA 110 MCG/ACT flovent HFA flovent HFA No flovent HFA Augmentin Augmentin No 1{table BID Augmentin 875-125 MG 875-125 MG t} 875-125 MG Albuterol Albuterol No 1{puff_ 6xD Albuterol Sulfate HFA Sulfate HFA as_need Sulfate 108 (90 108 (90 ed} HFA 108 Base) Base) (90 Base) MCG/ACT MCG/ACT MCG/ACT Flonase Flonase No Flonase EPINEPHrine EPINEPHrine No EPINEPHrin 0.3 0.3 e 0.3 MG/0.3ML MG/0.3ML MG/0.3ML Singulair Singulair No Singulair EPINEPHrine EPINEPHrine No EPINEPHrin 0.3 0.3 e 0.3 MG/0.3ML MG/0.3ML MG/0.3ML flovent HFA flovent HFA No flovent HFA Augmentin Augmentin No 1{table BID Augmentin 875-125 MG 875-125 MG t} 875-125 MG Albuterol Albuterol No 1{puff_ 6xD Albuterol Sulfate HFA Sulfate HFA as_need Sulfate 108 (90 108 (90 ed} HFA 108 Base) Base) (90 Base) MCG/ACT MCG/ACT MCG/ACT Flonase Flonase No Flonase Flovent HFA Flovent HFA No 2{puffs BID Flovent 110 MCG/ACT 110 MCG/ACT } HFA 110 MCG/ACT Albuterol Albuterol No 1{puff_ 6xD Albuterol Sulfate HFA Sulfate HFA as_need Sulfate 108 (90 108 (90 ed} HFA 108 Base) Base) (90 Base) MCG/ACT MCG/ACT MCG/ACT Flovent HFA Flovent HFA No 2{puffs BID Flovent 110 MCG/ACT 110 MCG/ACT } HFA 110 MCG/ACT Albuterol Albuterol No 1{puff_ 6xD Albuterol Sulfate HFA Sulfate HFA as_need Sulfate 108 (90 108 (90 ed} HFA 108 Base) Base) (90 Base) MCG/ACT MCG/ACT MCG/ACT EPINEPHrine EPINEPHrine No EPINEPHrin 0.3 0.3 e 0.3 MG/0.3ML MG/0.3ML MG/0.3ML Albuterol Albuterol No 1{puff_ 6xD Albuterol Sulfate HFA Sulfate HFA as_need Sulfate 108 (90 108 (90 ed} HFA 108 Base) Base) (90 Base) MCG/ACT MCG/ACT MCG/ACT Flovent HFA Flovent HFA No 2{puffs BID Flovent 110 MCG/ACT 110 MCG/ACT } HFA 110 MCG/ACT Albuterol Albuterol No 1{puff_ 6xD Albuterol Sulfate HFA Sulfate HFA as_need Sulfate 108 (90 108 (90 ed} HFA 108 Base) Base) (90 Base) MCG/ACT MCG/ACT MCG/ACT Immunizations Ordered Immunization Filled Immunization Date Status Commen ts Source Name Name [facility] COVID-19 MRNA Unknown Completed [facility] COVID-19 MRNA Unknown Completed [facility] Vital Signs Vital Name Observation Time Observation Value Comments Source height 2022-10-29 08:40:00 71 [in_i] [facility] weight 2022-10-29 08:40:00 210.0 [lb_av] Common [facility] temperature 2022-10-29 08:40:00 97.4 [degF] [facility] bmi 2022-10-29 08:40:00 29.29 kg/m2 [facility] oximetry 2022-10-29 08:40:00 98 % [facility] respiratory rate 2022-10-29 08:40:00 17 /min Comm on [facility] blood pressure 2022-10-29 08:40:00 125 mm[Hg] Common [facility] blood pressure 2022-10-29 08:40:00 85 mm[Hg] Common [facility] - diastolic [facility] height 2022-10-13 08:20:00 71 [in_i] Common [facility] weight 2022-10-13 08:20:00 211.2 [lb_av] [facility] temperature 2022-10-13 08:20:00 97.5 [degF] Common [facility] bmi 2022-10-13 08:20:00 29.45 kg/m2 [facility] oximetry 2022-10-13 08:20:00 100 % [facility] respiratory rate 2022-10-13 08:20:00 18 /min Comm on [facility] blood pressure 2022-10-13 08:20:00 136 mm[Hg] Common [facility] - systolic [facility] blood pressure 2022-10-13 08:20:00 88 mm[Hg] [facility] [place] [facility] height 2022-03-24 14:00:00 71 [in_i] [facility] weight 2022-03-24 14:00:00 209 [lb_av] [facility] temperature 2022-03-24 14:00:00 98.3 [degF] [facility] bmi 2022-03-24 14:00:00 29.15 kg/m2 [facility] oximetry 2022-03-24 14:00:00 98 % [facility] respiratory rate 2022-03-24 14:00:00 18 /min Comm on [facility] blood pressure 2022-03-24 14:00:00 125 mm[Hg] [facility] blood pressure 2022-03-24 14:00:00 80 mm[Hg] [facility] [place] [facility] Procedures This patient has no known procedures. Plan of Care Planned Activity Planned Date Details Comments Source Future Scheduled 2023-06-25 Screening for [facility] Test 01:25:25 malignant neoplasm of colon (procedure) [code = 030958512] Future Scheduled 2023-06-25 Screening for [facility] Test 01:25:25 malignant neoplasm of colon (procedure) [code = 764185366] Future Scheduled 2023-06-25 Screening for [facility] Test 01:25:25 malignant neoplasm of colon (procedure) [code = 037704619] Future Scheduled 2023-06-25 Screening for [facility] Test 01:25:25 malignant neoplasm of colon (procedure) [code = 727387715] Future Scheduled 2023-06-25 Screening for [facility] Test 01:25:25 malignant neoplasm of colon (procedure) [code = 898178798] Future Scheduled 2023-06-25 SHINGLES VACCINES [facility] 01:25:25 (1 of 2) [code = SHINGLES VACCINES (1 of 2)] Future Scheduled 2023-06-25 COVID-19 VACCINE (3 [facility] Test 01:25:25 - season) [code = COVID-19 VACCINE (3 - season)] Future Scheduled 2023-06-25 INFLUENZA VACCINE [facility] Test 01:25:25 (#1) [code = INFLUENZA VACCINE (#1)] Encounters Start End Encounter Admission Attending Care Care Encounter Source Date/Time Date/Time Type Type Clinicians Facility Department ID 2023-05-11 Outpatient HaywardSUSHIL kohler [facility] [id number] Common 08:26:00 Avnee [id number] [facility] 2023-03-[address] [facility] [id number] Common 15:38:00 Avnee [id number] [facility] 2023-03-25 Outpatient Hayward, [facility] [id number] Common 11:01:00 Avnee [id number] [facility] 2023-03-15 Outpatient Hayward, [facility] [id number] Common 10:14:01 Avnee [id number] [facility] 2022-10-13 Outpatient Hayward, [facility] [id number] Common 08:56:01 Avnee [id number] [facility] 2022-05-06 Outpatient Hayward, STLMLC STLMLC [id number] Common 08:32:01 Avnee [id number] [facility] 2022-05-05 Outpatient Hayward, STLMLC STLMLC [id number] Common 13:19:02 Avnee [id number] [facility] 2022-04-09 Outpatient Hayward, STLMLC STLMLC [id number] Common 11:00:02 Avnee [id number] [facility] 2022-03-24 Outpatient Hayward, STLMLC STLMLC [id number] Common 14:08:03 Avnee [facility] 2023-01-26 2023-01-26 (TEL) STLMLC STLMLC [id number] Co mmon 00:00:00 00:00:00 [facility] 2022-11-08 2022-11-08 (TEL) STLMLC STLMLC [id number] Co mmon 00:00:00 00:00:00 [facility] 2022-10-29 2022-10-29 OFFICE STLMLC STLMLC [id number] Co mmon 00:00:00 00:00:00 VISIT [facility] ESTAB PT - CHI LEVEL 4 [facility] 2022-10-13 2022-10-13 PREV VISIT STLMLC STLMLC [id number] Common 00:00:00 00:00:00 EST AGE [facility] 40-64 - [facility] 2022-10-05 2022-10-05 (TEL) STLMLC STLMLC [id number] Co mmon 00:00:00 00:00:00 [facility] 2022-05-05 2022-05-05 (TEL) STLMLC STLMLC [id number] Co mmon 00:00:00 00:00:00 [facility] 2022-03-24 2022-03-24 OFFICE STLMLC STLMLC [id number] Co mmon 00:00:00 00:00:00 VISIT NEW Spir it PT LEVEL 3 - [facility] 2020-11-21 2020-11-21 Outpatient NIGEL, [facility] [id number] [address] 00:00:00 00:00:00 MARTI 476 Me ashly 2020-10-31 2020-10-31 Outpatient [facility] [id number] [address] 00:00:00 00:00:[address] 2020-03-30 2020-03-30 Telephone SheetsMIO [id number] [facility] 00:00:00 00:00:00 Lisa AVILA 350.1.13.10 i ty of [facility] [id number] Dennis as [phone] [address] 2020-03-27 2020-03-27 Laboratory Lab, Adc Fam Pob I [facility] [id number]. [id number] Univers 13:16:31 13:36:31 Only Karin Liz [facility] [id number] ity of [place] [id number] Dennis as Professio [phone] [address] Office [address] 2020-03-27 2020-03-27 Outpatient R JACQUELYNREYNA [facility] [id number] Univers 13:00:00 13:00:00 LIZ montanezjenifer of [facility] 2020-03-27 2020-03-27 Letter Doctor MIO [id number] Univers 00:00:00 00:00:00 (Out) Unassigned, MARGARITA 350.1.13.10 ity of [place] [facility] 4.2.7.2.686 Dennis as [phone] [address] Results Test Description Test Time Test Comments Results Result Comments Source RETICULOCYTE WITH ABSOLUTE 2023-05-06 00:00:00 Test Item Value Reference Range Interpretation Comme nts ABSOLUTE RETICULOCYTE (test 52.3 K/UL See_Comment [Automated message] The system code = 27502-9) which genera aurelio this result transmitted ref erence range: 35.0-110.0 K/UL . The reference range was not u sed to interpret this result as normal/abnormal. RETICULOCYTE COUNT (test code 1.06 % See_Comment [Automated message] The system = 4679-7) which generated this result transmitted ref erence range: 0.80-2.40 %. Th e reference range was not used to interpret this result as charity l/abnormal. [id number] 00:00:00 Test Item Value Reference Range Interpretation Comments FERRITIN (test code = 99 NG/ML See_Comment [Auto mated message] The 30106-3) system which ge nerated this result tra nsmitted reference range : 30-400 NG/ML. The refe rence range was not u sed to interpret this result as normal/abnormal . HEMOGLOBIN [id number] 00:00:00 Test Item Value Reference Range Interpretation Comments HEMOGLOBIN A1c (test 6.4 % See_Comment H [Autom ated message] The code = 4548-4) system which generated this result tra nsmitted reference range : 4.2-5.6 %. The referenc e range was not used to interpret this result as normal/abnormal . [id number] 00:00:00 Test Item Value Reference Range Interpretation Comments TRANSFERRIN (test code 231 MG/DL See_Comment [Aut omated message] = 3034-6) The system [facility] generated this result transmitted ref erence range: 200-360 MG/DL. The reference r jj was not used to interpret this result as normal/abnor mal. LIPID PANEL WITH REFLEX DIRECT [id number] 00:00:00 Test Item Value Reference Range Interpretation Comments CALC LDL CHOL (test 115 MG/DL See_Comment H [Automa aurelio message] code = 20397-0) The system [facility] generated this result transmit aurelio reference range : <100 MG/DL. The reference range was not used to interpret this result as normal/abnormal . CHOLESTEROL (test code 185 MG/DL See_Comment [Aut omated message] = 2093-3) The system [facility] generated this result transmit aurelio reference range : <200 MG/DL. The reference range was not used to interpret this result as normal/abnormal . HDL CHOLESTEROL (test 56 MG/DL See_Comment [Auto mated message] code = 2085-9) The system [facility] generated this result transmit aurelio reference range : >39 MG/DL. The refe rence range was not u sed to interpret th is result as normal/abnormal . RISK RATIO LDL/HDL 2.05 RATIO See_Comment [Automat ed message] (test code = 39077-8) The sy stem which generated this result transmit aurelio reference range : <3.55 RATIO. Th e reference range was not used to interpret this result as normal/abnormal . TRIGLYCERIDES (test 55 MG/DL See_Comment [Automa aurelio message] code = 2571-8) The system [facility] generated this result transmit aurelio reference range : <150 MG/DL. The reference range was not used to interpret this result as normal/abnormal . PATHOLOGIST SMEAR [id number] 00:00:00 Test Item Value Reference Range Interpretation Comments BASOPHILS (test code 0.7 % = 50282-0) COMMENTS (test code (NOTE) = 06733-0) DIAGNOSIS: (test (NOTE) code = 49434-0) EOSINOPHILS (test 1.1 % code = 26729-7) HEMATOCRIT (test 41.5 % See_Comment [Automated message] code = 73152-1) The system [facility] generated this result transmit aurelio reference range : 40.0-51.0 %. Th e reference range was not used to interpret this result as normal/abnormal . HEMOGLOBIN (test 13.8 G/DL See_Comment [Automated message] code = 718-7) The system [facility] generated this result transmit aurelio reference range : 13.5-17.0 G/DL. The reference range was not used to interpret this result as normal/abnormal . LYMPHOCYTES (test 35.6 % code = 45011-9) MCH (test code = 28.0 PG See_Comment [Automated message] 64637-2) The system [facility] generated this result transmit aurelio reference range : 25.0-33.0 PG. T he reference range was not used to interpret this result as normal/abnormal . MCHC (test code = 33.3 G/DL See_Comment [Automate d message] 24336-0) The system [facility] generated this result transmit aurelio reference range : 31.0-36.0 G/DL. The reference range was not used to interpret this result as normal/abnormal . MCV (test code = 84.2 fL See_Comment [Automated message] 68619-1) The system [facility] generated this result transmit aurelio reference range : 80.0-99.0 fL. T he reference range was not used to interpret this result as normal/abnormal . MICROSCOPIC (NOTE) DESCRIPTION: (test code = 20548-7) MONOCYTES (test code 6.8 % = 44072-4) NEUTROPHILS (test 55.4 % code = 92065-7) NUCLEATED RBCS (test 0.0 /100 WBC'S See_Comment [Aut omated message] code = 89412-5) The system [employer] generated this result transmit aurelio reference range : 0.0 /100 WBC'S. The reference range was not used to interpret this result as normal/abnormal . PATHOLOGIST: (test (NOTE) code = 03204-5) PLATELET COUNT (test 189 K/UL See_Comment [Autom ated message] code = 34182-2) The system [employer] generated this result transmit aurelio reference range : 130-400 K/UL. T he reference range was not used to interpret this result as normal/abnormal . RBC (test code = 4.93 M/UL See_Comment [Automated message] 01851-9) The system [facility] generated this result transmit aurelio reference range : 4.50-6.10 M/UL. The reference range was not used to interpret this result as normal/abnormal . RDW (test code = 13.0 % See_Comment [Automated message] 32685-8) The system [employer] generated this result transmit aurelio reference range : 11.5-15.0 %. Th e reference range was not used to interpret this result as normal/abnormal . WBC (test code = 2.8 K/UL See_Comment L [Automated message] 95881-8) The system [employer] generated this result transmit aurelio reference range : 3.5-11.0 K/UL. The reference range was not used to interpret this result as normal/abnormal . IRON BINDING CAPACITY AND IRON AND % [id number] 00:00:00 Test Item Value Reference Range Interpretation Comments CALC % IRON SAT (test 29 % See_Comment [Auto mated message] code = 2502-3) The system [facility] generated this result transmitted ref erence range: 20-50 %. The reference range was not used to int erpret this result as normal/abnormal . CALC TOTAL IBC (test 307 UG/DL See_Comment [Autom ated message] code = 25067-4) The system [employer] generated this result transmitted ref erence range: 250-450 UG/DL. The reference r jj was not used to interpret this result as normal/abnor mal. IRON, SERUM (test code 90 UG/DL See_Comment [Aut omated message] = 2728-4) The system [facility] generated this result transmitted ref erence range: 59-158 U G/DL. The reference r jj was not used to interpret this result as normal/abnor mal. UNSATURATED IBC (test 217 UG/DL See_Comment [Auto mated message] code = 1731-5) The system [facility] center generated this result transmitted ref erence range: 112-347 UG/DL. The reference r jj was not used to interpret this result as normal/abnor mal.
[2023-07-22 11:45] LABS: SARS-CoV-2 Antigen Rapid Res Negative (Negative)
--- NOTE | 2023-07-22 12:03 | ER ---
Nurse's Notes [facility] Name: Brian Feliz Age: 52 yrs Sex: Male : 1970 Arrival Date: 07/22/2023 Time: 10:43 Bed 12 Private MD: Shahrzad Hayward Diagnosis: Acute upper respiratory infection, unspecified;Elevated blood-pressure reading, without diagnosis of hypertension Presentation: 07/22 10:52 Chief complaint: Patient states: Cough, congestion since Tuesday. Family has covid and ll1 he was exposed. Coronavirus screen: Vaccine status: Patient reports receiving the 2nd dose of the covid vaccine. Client denies travel out of the [place] in the last 14 days. chills, congestion, cough unrelated to allergies, difficulty breathing, fatigue, muscle pain, shaking with chills, shortness of breath, Client presents with at least one sign or symptom that may indicate coronavirus-19. Standard/surgical mask placed on the client. Ebola Screen: Patient denies travel to an Ebola-affected area in the 21 days before illness onset. Initial Sepsis Screen: Does the patient meet any 2 criteria? No. Patient's initial sepsis screen is negative. Does the patient have a suspected source of infection? Yes: Productive cough/pneumonia. Risk Assessment: Do you want to hurt yourself or someone else? Patient reports no desire to harm self or others. Onset of symptoms was July 21, 2023. 10:52 Method Of Arrival: Ambulatory ll1 10:52 Acuity: JULIÁN 4 ll1 Triage Assessment: 10:55 General: Appears in no apparent distress. Behavior is calm, cooperative, appropriate ll1 for age. Pain: Complains of pain in chest Pain currently is 3 out of 10 on a pain scale. Quality of pain is described as. EENT: Reports nasal congestion. Respiratory: Reports shortness of breath cough that is pain with cough. Historical: - Allergies: 10:47 SEAFOOD; ll1 - PMHx: 10:47 Asthma; Myocardial infarction; ll1 - PSHx: 10:47 heart cath; ll1 - Immunization history:: Adult Immunizations up to date. - Social history:: Smoking status: Patient denies any tobacco usage or history of. Screenin:11 [facility] ED Fall Risk Assessment (Adult) Score/Fall Risk Level 0 - 2 = Low Risk ll1 Oriented to surroundings, Maintained a safe environment, Educated pt \T\ family on fall prevention, incl call for assistance when getting out of bed, Hourly rounding (assess needs \T\ fall precautionary measures) done. Abuse screen: Denies threats or abuse. Nutritional screening: No deficits noted. Tuberculosis screening: No symptoms or risk factors identified. Assessment: 11:16 Reassessment: No changes from previously documented assessment. Patient and/or family ll1 updated on plan of care and expected duration. Pain level reassessed. 12:10 Reassessment: No changes from previously documented assessment. Patient and/or family ll1 updated on plan of care and expected duration. Pain level reassessed. Vital Signs: 10:52 BP 149 / 94; Pulse 70; Resp 17; Temp 98.5; Pulse Ox 97% on R/A; Weight 93.89 kg; Height ll1 5 ft. 11 in. ; Pain 3/10; 12:21 BP 140 / 87; Pulse 68; Resp 16; Pulse Ox 97% on R/A; ll1 10:52 Body Mass Index 28.87 (93.89 kg, 180.34 cm) ll1 10:52 Pain Scale: Adult ll1 ED Course: 10:46 Patient arrived in ED. as 10:47 Shahrzad Hayward is Private Physician. as 10:47 Arm band placed on. ll1 10:50 Saleem Martin DO is Attending Physician. ms3 10:54 Triage completed. ll1 11:00 Provided Education on: ER procedures/process. ll1 11:16 Patient placed in an exam room, on a stretcher. ll1 11:16 Flu Sent. ll1 11:16 SARS RAPID Sent. ll1 12:01 Shahrzad Hayward is Referral Physician. ms3 12:11 No provider procedures requiring assistance completed. Patient did not have IV access ll1 during this emergency room visit. 12:21 Patient has correct armband on for positive identification. Bed in low position. Call ll1 light in reach. Administered Medications: No medications were administered Medication: 12:21 VIS not applicable for this client. ll1 Outcome: 12:02 Discharge ordered by . ms3 12:21 Condition: stable ll1 12:22 Discharged to home ambulatory, ll1 12:22 Discharge instructions given to patient, Instructed on discharge instructions, follow up and referral plans. Demonstrated understanding of instructions, follow-up care, 12:23 Patient left the ED. [facility] Signatures: Carla Jessica Lynsay RN RN ll1 Saleem Martin DO DO ms3 Corrections: (The following items were deleted from the chart) 12:21 Provided Education on: waiting on room assignement. 1 1 : 12:21 Client placed on continuous cardiac and pulse oximetry monitoring. NIBP 1 monitoring applied. quality assurance monitor on. [facility] : 12:10 Reassessment: No changes from previously documented assessment. Patient and/or ll1 family updated on plan of care and expected duration. Pain level reassessed. Patient is alert, oriented x 3, equal unlabored respirations, skin warm/dry/pink. [facility] : 12:21 Reassessment: No changes from previously documented assessment. Patient and/or ll1 family updated on plan of care and expected duration. Pain level reassessed. [facility] 12: Admitted to ER Hold. Please see [facility] for further documentation. [place] [id number] : 12:21 Instructed on the need for admit, [place] [id number]
--- NOTE | 2023-07-22 12:03 | EDPHYS ---
[facility] Name: Brian Feliz Age: 52 yrs Sex: Male : 1970 Arrival Date: 07/22/2023 Time: 10:43 Bed 12 Private MD: Shahrzad Hayward ED Physician Saleem Martin HPI: 07/22 11:21 This 52 yrs old Black Male presents to ER via Ambulatory with complaints of r/o covid. ms3 11:21 52-year-old male with past medical history of asthma and myocardial infarction presents ms3 to the emergency department for cough, runny nose, chills that have been ongoing for 4 days. Patient states his father recently flew in from [place] and was diagnosed with COVID. Patient denies pain at this time. Patient denies any alleviating or inciting factors. Historical: - Allergies: 10:47 SEAFOOD; ll1 - PMHx: 10:47 Asthma; Myocardial infarction; ll1 - PSHx: 10:47 heart cath; ll1 - Immunization history:: Adult Immunizations up to date. - Social history:: Smoking status: Patient denies any tobacco usage or history of. ROS: 11:21 Neck: Negative for injury, pain, and swelling, Cardiovascular: Negative for chest pain, ms3 and palpitations. Abdomen/GI: Negative for abdominal pain, nausea, vomiting, diarrhea, and constipation, MS/Extremity: Negative for injury and deformity, Skin: Negative for injury, rash, and discoloration, 11:21 Constitutional: Positive for chills, 11:21 Respiratory: Positive for cough, 11:21 All other systems are negative, Exam: 11:21 Constitutional: This is a well developed, well nourished patient who is awake, alert, ms3 and in no acute distress. Head/Face: Normocephalic, atraumatic. Chest/axilla: Normal chest wall appearance and motion. Nontender with no deformity. Cardiovascular: Regular rate and rhythm with a normal S1 and S2. No gallops, murmurs, or rubs. Normal PMI, no JVD. No pulse deficits. Respiratory: Lungs have equal breath sounds bilaterally, clear to auscultation and percussion. No rales, rhonchi or wheezes noted. No increased work of breathing, no retractions or nasal flaring. Abdomen/GI: Soft, non-tender, with normal bowel sounds. No distension or tympany. No guarding or rebound. No evidence of tenderness throughout. Skin: Warm, dry with normal turgor. Normal color with no rashes, no lesions, and no evidence of cellulitis. MS/ Extremity: Pulses equal, no cyanosis. Neurovascular intact. Full, normal range of motion. Vital Signs: 10:52 BP 149 / 94; Pulse 70; Resp 17; Temp 98.5; Pulse Ox 97% on R/A; Weight 93.89 kg; Height ll1 5 ft. 11 in. ; Pain 3/10; 12:21 BP 140 / 87; Pulse 68; Resp 16; Pulse Ox 97% on R/A; ll1 10:52 Body Mass Index 28.87 (93.89 kg, 180.34 cm) ll1 10:52 Pain Scale: Adult ll1 MDM: 11:03 Patient medically screened. ms3 11:21 Differential diagnosis: flu, URI, COVID. ms3 12:04 Data reviewed: vital signs, nurses notes, lab test result(s), and as a result, I will ms3 discharge patient. Counseling: I had a detailed discussion with the patient and/or guardian regarding the historical points, exam findings, and any diagnostic results supporting the discharge/admit diagnosis, the need for outpatient follow up, to return to the emergency department if symptoms worsen or persist or if there are any questions or concerns that arise at home. Special discussion: I discussed with the patient/guardian in detail that at this point there is no indication for admission to the hospital. It is understood, however, that if the symptoms persist or worsen the patient needs to return immediately for re-evaluation. ED course: Discussed negative flu and COVID results with patient. Patient to follow-up with primary care physician 2 to 3 days. Patient understands and agrees with plan. All questions were answered. Return precautions discussed include worsening symptoms, or any other concerns. 07/22 11:04 Order name: Flu; Complete Time: 11:57 ms3 07/22 11:04 Order name: SARS RAPID; Complete Time: :57 ms3 Administered Medications: No medications were administered Disposition Summary: 07/22/23 12:02 Discharge Ordered Notes: Location: Home ms3 Condition: Stable ms3 Diagnosis - Acute upper respiratory infection, unspecified ms3 - Elevated blood-pressure reading, without diagnosis of hypertension ms3 Followup: ms3 - With: Shahrzad Hayward - When: 2 - 3 days - Reason: Recheck today's complaints Discharge Instructions: - Discharge Summary Sheet ms3 - Upper Respiratory Infection, Adult, [id number] ms3 - Viral Respiratory Infection, [id number] ms3 - Cough, Adult ms3 - DASH Eating Plan ms3 Forms: - Medication Reconciliation Form ms3 - Thank You Letter ms3 - Antibiotic Education ms3 - Prescription Opioid Use ms3 - Patient Portal Instructions ms3 - Leadership Thank You Letter ms3 Signatures: Dispatcher [employer] Gus Marcelo RN RN ll1 Saleem Martin DO DO ms3
[2023-07-22 12:44] VITALS: TEMP 98.5; O2SAT 97
[2023-07-22 12:46] VITALS: BP 140/87
== END 2023-07-22 12:23 | disposition home or self-care (01) ==
LOC: EEVIPCON 10:43 → ER 10:43
DX: J06.9 Acute upper respiratory infection, unspecified (principal); R03.0 Elevated blood-pressure reading, without diagnosis of hypertension; Z11.52 Encounter for screening for COVID-19; I25.2 Old myocardial infarction; Z91.013 Allergy to seafood
CPT/HCPCS: 36415; 87804; 87811; 99283

== ENCOUNTER → 2023-09-23 | Emergency (ER) | payer OTHER ==
--- NOTE | 2023-09-23 07:48 | ER ---
Nurse's Notes [facility] Name: Brian Feliz Age: 52 yrs Sex: Male : 1970 Arrival Date: 09/23/2023 Time: 06:22 Bed 6 Private MD: Diagnosis: Acute serous otitis media, right ear Presentation: 09/23 06:56 Chief complaint: Patient states: I started feeling tingling in/around my right eye and jw7 then it started to spread to my right ear, and throat. Now I can feel it when I swallow. Coronavirus screen: At this time, the client does not indicate any symptoms associated with coronavirus-19. Ebola Screen: No symptoms or risks identified at this time. Initial Sepsis Screen: Does the patient meet any 2 criteria? No. Patient's initial sepsis screen is negative. Does the patient have a suspected source of infection? No. Patient's initial sepsis screen is negative. Risk Assessment: Do you want to hurt yourself or someone else? Patient reports no desire to harm self or others. Onset of symptoms was September 20, 2023. 06:56 Method Of Arrival: Ambulatory [facility] 06:56 Acuity: JULIÁN 4 jw7 Triage Assessment: 06:58 General: Appears in no apparent distress. comfortable, Behavior is calm, cooperative. jw7 Pain: Complains of pain in Right Ear, neck and face Pain does not radiate. Pain currently is 5 out of 10 on a pain scale. Quality of pain is described as aching, Pain began 2-3 days ago. Is continuous. EENT: Reports Aching in right ear and tingling to face and neck. Neuro: Bah Agitation-Sedation Scale (RASS): 0 - Alert and Calm Level of Consciousness is awake, alert, obeys commands, Oriented to person, place, time, situation. Cardiovascular: Capillary refill < 3 seconds Clubbing of nail beds is absent JVD is absent Patient's skin is warm and dry. Respiratory: Airway is patent Trachea midline Respiratory effort is even, unlabored, Respiratory pattern is regular, symmetrical. GI: Abdomen is flat, non-distended. : No deficits noted. No signs and/or symptoms were reported regarding the genitourinary system. Derm: Skin is intact, is healthy with good turgor, Skin is dry, Skin is normal, Skin temperature is warm. Musculoskeletal: Circulation, motion, and sensation intact. Range of motion: intact in all extremities. Historical: - Allergies: 06:58 No Known Allergies; jw7 - Home Meds: 06:58 None [Active]; jw7 - PMHx: 06:58 None; jw7 - PSHx: 06:58 Back Surgery; jw7 - Immunization history:: Adult Immunizations up to date, Client reports receiving the 2nd dose of the Covid vaccine, Last tetanus immunization: < 5 years ago Flu vaccine is up to date. - Social history:: Smoking status: Patient denies any tobacco usage or history of. Patient/guardian denies using alcohol, street drugs, IV drugs. Screenin:01 [facility] ED Fall Risk Assessment (Adult) History of falling in the last 3 months, jw7 including since admission No falls in past 3 months (0 pts) Score/Fall Risk Level 0 - 2 = Low Risk Oriented to surroundings, Maintained a safe environment, Educated pt \T\ family on fall prevention, incl call for assistance when getting out of bed. Abuse screen: Denies threats or abuse. Denies injuries from another. Nutritional screening: No deficits noted. Tuberculosis screening: No symptoms or risk factors identified. Assessment: 07:01 General: Appears in no apparent distress. uncomfortable, Behavior is calm, cooperative. rs5 Pain: Complains of pain in right ear Pain radiates to head and neck Pain currently is 5 out of 10 on a pain scale. Quality of pain is described as aching, Pain began 2-3 days ago. Is continuous. Neuro: Level of Consciousness is awake, alert, obeys commands, Oriented to person, place, time, situation. Cardiovascular: Heart tones S1 S2 present Patient's skin is warm and dry. Rhythm is regular. Respiratory: Airway is patent Respiratory effort is even, unlabored, Respiratory pattern is regular, symmetrical, Breath sounds are clear bilaterally. GI: Abdomen is round non-distended, Bowel sounds present X 4 quads. Abd is soft and non tender X 4 quads. : No signs and/or symptoms were reported regarding the genitourinary system. EENT: No signs and/or symptoms were reported regarding the EENT system. Derm: Skin is intact, Skin is dry, Skin is normal, Skin temperature is warm. Musculoskeletal: Range of motion: intact in all extremities. 07:50 Reassessment: No changes from previously documented assessment. Patient and/or family rs5 updated on plan of care and expected duration. Pain level reassessed. Patient is alert, oriented x 3, equal unlabored respirations, skin warm/dry/pink. Vital Signs: 06:56 BP 121 / 86; Pulse 60; Resp 16 S; Temp 97.7(O); Pulse Ox 99% on R/A; Weight 92.99 kg; jw7 Height 5 ft. 11 in. ; Pain 5/10; 07:10 BP 125 / 89; Pulse 66; Resp 18; Temp 97.8(O); Pulse Ox 99% ; rs5 08:00 BP 122 / 87; Pulse 63; Resp 17; Pulse Ox 99% on R/A; rs5 06:56 Body Mass Index 28.59 (92.99 kg, 180.34 cm) jw7 06:56 Pain Scale: Adult jw ED Course: 06:37 Patient arrived in ED. gm2 06:58 Triage completed. jw7 06:58 Arm band placed on. jw7 07:01 Patient has correct armband on for positive identification. Bed in low position. Call [facility] light in reach. 07:09 Saleem Martin DO is Attending Physician. ms3 07:46 Austen Cosby DO is Referral Physician. ms3 08:07 Jefry Florian, STEPHANIE is Primary Nurse. rs5 08:10 No provider procedures requiring assistance completed. Patient did not have IV access rs5 during this emergency room visit. Administered Medications: No medications were administered Medication: 08:10 VIS not applicable for this client. rs5 Outcome: 07:47 Discharge ordered by MD. ms3 08:10 Discharged to home ambulatory, rs5 08:10 Condition: stable 08:10 Discharge instructions given to patient, Instructed on discharge instructions, follow up and referral plans. medication usage, Demonstrated understanding of instructions, follow-up care, medications, Prescriptions given X 1, 08:11 Patient left the ED. rs5 Signatures: Saleem Martin DO DO ms3 Anca Foss RN RN jwJefry Bingham RN RN neha5 Lucia Castellano gm2 Corrections: (The following items were deleted from the chart) 07:00 06:58 Allergies: SEAFOOD; jw7 jw7 07:00 06:58 PMHx: Asthma; jw7 jw7 07:00 06:58 PMHx: Myocardial infarction; jw7 jw7 07:00 06:58 PSHx: heart cath; jw7 jw7
--- NOTE | 2023-09-23 08:11 | EDPHYS ---
Physician Documentation [facility] Name: Brian Feliz Age: 52 yrs Sex: Male : 1970 Arrival Date: 09/23/2023 Time: 06:22 Bed 6 Private MD: ED Physician Saleem Martin HPI: 09/23 07:59 This 52 yrs old Black Male presents to ER via Ambulatory with complaints of Ear Pain, ms3 Facial Swelling, Headache, Sore Throat. 07:59 52-year-old male with no past medical history presents to the emergency department for ms3 right ear pain, right frontal sinus pain that began 3 days prior to arrival. Patient states his discomfort is a 7/10. Patient states he took aspirin on Tuesday without relief of his symptoms. Patient states his pain became worse yesterday.. Historical: - Allergies: 06:58 No Known Allergies; jw7 - Home Meds: 06:58 None [Active]; jw7 - PMHx: 06:58 None; jw7 - PSHx: 06:58 Back Surgery; jw7 - Immunization history:: Adult Immunizations up to date, Client reports receiving the 2nd dose of the Covid vaccine, Last tetanus immunization: < 5 years ago Flu vaccine is up to date. - Social history:: Smoking status: Patient denies any tobacco usage or history of. Patient/guardian denies using alcohol, street drugs, IV drugs. ROS: 07:59 Constitutional: Negative for fever, and chills. Neck: Negative for injury, pain, and ms3 swelling, Cardiovascular: Negative for chest pain, and palpitations. Respiratory: Negative for shortness of breath, cough, wheezing, and pleuritic chest pain, Abdomen/GI: Negative for abdominal pain, nausea, vomiting, diarrhea, and constipation, 07:59 Skin: Negative for injury, rash, and discoloration, 07:59 ENT: Positive for ear pain, 07:59 All other systems are negative, Exam: 07:59 Constitutional: This is a well developed, well nourished patient who is awake, alert, ms3 and in no acute distress. Head/Face: Normocephalic, atraumatic. Chest/axilla: Normal chest wall appearance and motion. Nontender with no deformity. Cardiovascular: Regular rate and rhythm with a normal S1 and S2. No gallops, murmurs, or rubs. Normal PMI, no JVD. No pulse deficits. Respiratory: Lungs have equal breath sounds bilaterally, clear to auscultation and percussion. No rales, rhonchi or wheezes noted. No increased work of breathing, no retractions or nasal flaring. Abdomen/GI: Soft, non-tender, with normal bowel sounds. No distension or tympany. No guarding or rebound. No evidence of tenderness throughout. Skin: Warm, dry with normal turgor. Normal color with no rashes, no lesions, and no evidence of cellulitis. 07:59 ENT: External ear(s): are unremarkable, Ear canal(s): erythema, that is moderate, of the right canal, TM's: erythema, that is mild, on the right, fluid levels, on the right, Vital Signs: 06:56 BP 121 / 86; Pulse 60; Resp 16 S; Temp 97.7(O); Pulse Ox 99% on R/A; Weight 92.99 kg; jw7 Height 5 ft. 11 in. ; Pain 5/10; 07:10 BP 125 / 89; Pulse 66; Resp 18; Temp 97.8(O); Pulse Ox 99% ; rs5 08:00 BP 122 / 87; Pulse 63; Resp 17; Pulse Ox 99% on R/A; rs5 06:56 Body Mass Index 28.59 (92.99 kg, 180.34 cm) [facility] 06:56 Pain Scale: Adult [facility] MDM: 07:22 Patient medically screened. ms3 07:59 Differential diagnosis: otitis media, acute otalgia. Data reviewed: vital signs, nurses ms3 notes, and as a result, I will discharge patient. I considered the following discharge prescriptions or medication management in the emergency department. Independent interpretation of the following test(s) in the Emergency Department EKG: See my EKG interpretation above. Counseling: I had a detailed discussion with the patient and/or guardian regarding the historical points, exam findings, and any diagnostic results supporting the discharge/admit diagnosis, the need for outpatient follow up, to return to the emergency department if symptoms worsen or persist or if there are any questions or concerns that arise at home. Special discussion: I discussed with the patient/guardian in detail that at this point there is no indication for admission to the hospital. It is understood, however, that if the symptoms persist or worsen the patient needs to return immediately for re-evaluation. ED course: Discussed physical exam findings with patient. Patient to follow-up Dr. Cosby in 2 to 3 days. Patient understands and agrees with plan. All questions were answered. On exam patient is alert and orient x 4, no apparent distress, nontoxic-appearing, ambulatory number department, neurologically intact. Return precautions discussed include worsening symptoms, or any other concerns. Administered Medications: No medications were administered Disposition: 15:15 Chart complete. ms3 Disposition Summary: 09/23/23 07:47 Discharge Ordered Notes: Location: Home ms3 Condition: Stable ms3 Diagnosis - Acute serous otitis media, right ear ms3 Followup: ms3 - With: Austen Cosby DO - When: 2 - 3 days - Reason: Recheck today's complaints Discharge Instructions: - Discharge Summary Sheet ms3 - Otitis Media, Adult ms3 Forms: - Medication Reconciliation Form ms3 - Thank You Letter ms3 - Antibiotic Education ms3 - Prescription Opioid Use ms3 - Patient Portal Instructions ms3 - Leadership Thank You Letter ms3 Prescriptions: - Amoxicillin 875 mg Oral Tablet - take 1 tablet ORAL route every 12 hours for 10 days; 20 tablet; Refills: 0, ms3 Product Selection Permitted Signatures: Saleem Martin DO DO ms3 Anca Foss RN RN jw7 Corrections: (The following items were deleted from the chart) 07:00 06:58 Allergies: SEAFOOD; jw7 jw7 07:00 06:58 PMHx: Asthma; jw7 jw7 07:00 06:58 PMHx: Myocardial infarction; jw7 jw7 07:00 06:58 PSHx: heart cath; jw7 jw7
[2023-09-23 08:18] VITALS: BP 122/87; TEMP 97.8; O2SAT 99
== END ==
LOC: ER 06:22
DX: H65.01 Acute serous otitis media, right ear (principal)

== ENCOUNTER 2024-11-24 16:18 | Emergency (ER) | payer OTHER ==
[2024-11-24] MEDS ORDERED: dexAMETHasone 10 MG/ML VIAL ONE (16:43)
--- NOTE | 2024-11-24 16:50 | EDPHYS ---
Physician Documentation [facility] Name: Brian Feliz Age: 54 yrs Sex: Male : 1970 Arrival Date: 11/24/2024 Time: 16:18 Bed IW1 Private MD: ED Physician Sherrell Cosby HPI: 11/24 17:22 This 54 yrs old Black Male presents to ER via Ambulatory with complaints of Sinus dr5 Congestion, Chest Congestion. 17:22 The patient or guardian reports cough. Patient is a 54-year-old male with history of dr5 asthma coming in with 2 weeks of cough, congestion. Patient reports that he has been on several airplane rides due to work and has had ear discomfort as well. Patient denies fever or productive cough. Historical: - Allergies: 16:45 SHELLFISH; cm10 - PMHx: 16:45 Asthma; cm10 - PSHx: 16:45 back surgery; cm10 - Immunization history:: Adult Immunizations up to date. - Infectious Disease History:: Denies. - Social history:: Smoking status: Patient denies any tobacco usage or history of. ROS: 17:22 Constitutional: as per hpi dr5 Exam: 17:22 Constitutional: This is a well developed, well nourished patient who is awake, alert, dr5 and in no acute distress. Head/Face: Normocephalic, atraumatic. 17:22 Neck: Trachea midline, no thyromegaly or masses palpated, and no cervical lymphadenopathy. Supple, full range of motion without nuchal rigidity, or vertebral point tenderness. No Meningismus. Chest/axilla: Normal chest wall appearance and motion. Nontender with no deformity. No lesions are appreciated. Cardiovascular: Regular rate and rhythm with a normal S1 and S2. Normal PMI, no JVD. No pulse deficits. Respiratory: Lungs have equal breath sounds bilaterally, clear to auscultation. No rales, rhonchi or wheezes noted. No increased work of breathing, no retractions or nasal flaring. Skin: Warm, dry with normal turgor. Normal color with no rashes, no lesions, and no evidence of cellulitis. MS/ Extremity: Pulses equal, no cyanosis. Neurovascular intact. Full, normal range of motion. Neuro: Awake and alert, GCS 15, oriented to person, place, time, and situation. Cranial nerves II-XII grossly intact. Motor strength 5/5 in all extremities. Sensory grossly intact. Cerebellar exam normal. Normal gait. 17:22 Head/face: Sinus tenderness, that is mild, is located over the right frontal sinus, left frontal sinus, right maxillary sinus and left maxillary sinus, 17:22 ENT: TM's: bulging, on the left, decreased mobility, dullness, on the left, dr5 Vital Signs: 16:44 BP 160 / 92; Pulse 75; Resp 18; Temp 98.6(O); Pulse Ox 100% on R/A; Weight 93.89 kg; cm10 Height 5 ft. 11 in. ; Pain 6/10; 16:44 Body Mass Index 28.87 (93.89 kg, 180.34 cm) cm10 16:44 Pain Scale: Adult cm10 MDM: 16:30 Medical Screening Exam initiated dr5 17:22 Differential Diagnosis: Bronchitis Upper Respiratory Infection Otitis Media. dr5 17:24 Data reviewed: vital signs, nurses notes. I considered the following discharge dr5 prescriptions or medication management in the emergency department Medications were administered in the Emergency Department. See MAR. Care significantly affected by the following chronic conditions: Asthma. Care significantly affected by the following Social Determinants of Health: Poor access to healthcare and/or lack of insurance, Poor access to transportation, Problems related to employment. Counseling: I had a detailed discussion with the patient and/or guardian regarding the historical points, exam findings, and any diagnostic results supporting the discharge/admit diagnosis, the presence of at least one elevated blood pressure reading (>120/80) during this emergency department visit, the need for outpatient follow up, for definitive care, a family practitioner, to return to the emergency department if symptoms worsen or persist or if there are any questions or concerns that arise at home. ED course: Will cover for sinusitis with Augmentin as well as mild likely otitis media developmental left side. Will give patient a steroid Dosepak. Alternate Tylenol Motrin as needed for fever and pain. Recommended primary care doctor follow-up this week. All questions answered. Strict ER precautions given.. Administered Medications: 16:52 Drug: Dexamethasone IM 10 mg IM once Route: IM; Site: right gluteus; cm10 16:53 Follow up: Response: No adverse reaction cm10 Disposition Summary: 11/24/24 16:49 Discharge Ordered Notes: Location: Home dr5 Condition: Stable dr5 Diagnosis - Other acute sinusitis dr5 Followup: dr5 - With: Emergency Department - When: As needed - Reason: Worsening of condition Followup: dr5 - With: Private Physician - When: 1 - 2 days - Reason: Recheck today's complaints, Continuance of care, Re-evaluation by your physician Discharge Instructions: - Discharge Summary Sheet dr5 - Sinusitis, Adult dr5 Forms: - Medication Reconciliation Form dr5 - Antibiotic Education dr5 - Patient Portal Instructions dr5 - Leadership Thank You Letter dr5 Prescriptions: - Augmentin 875-125 mg Oral Tablet - take 1 tablet ORAL route every 12 hours for 10 days; 20 tablet; Refills: 0, dr5 Product Selection Permitted - Medrol (Hao) 4 mg Oral Tablets, Dose Pack - take 1 tablet ORAL route as directed - follow package instructions; 1 packet; dr5 Refills: 0, Product Selection Permitted - Guaifenesin AC 10-100 mg/5 mL Oral Liquid - take 10 milliliters ORAL route every 4 hours As needed; 240 milliliter; dr5 Refills: 0, Product Selection Permitted Signatures: Beverley Jessica RN RN cm10 Shane Dozier, CURATOR NATURAL HISTORY MUSEUM-C CURATOR NATURAL HISTORY MUSEUM-Cdr5
--- NOTE | 2024-11-24 16:50 | ER ---
Nurse's Notes [facility] Name: Brian Feliz Age: 54 yrs Sex: Male : 1970 Arrival Date: 11/24/2024 Time: 16:18 Bed IW1 Private MD: Diagnosis: Other acute sinusitis Presentation: 11/24 16:44 Chief complaint: Patient states: SINUS PRESSURE, CHEST DISCOMFORT, COUGH ONSET 2 WEEKS cm10 AGO. PT HAS BEEN TAKING OTC MEDS WITH NO RELIEF. Coronavirus screen: Client denies travel out of the [place] in the last 14 days. Ebola Screen: Patient denies travel to an Ebola-affected area in the 21 days before illness onset. Initial Sepsis Screen: Does the patient meet any 2 criteria? No. Patient's initial sepsis screen is negative. Does the patient have a suspected source of infection? No. Patient's initial sepsis screen is negative. Risk Assessment: Do you want to hurt yourself or someone else? Patient reports no desire to harm self or others. Onset of symptoms is unknown. 16:44 Method Of Arrival: Ambulatory cm10 16:44 Acuity: JULIÁN 3 cm10 Triage Assessment: 16:45 General: Appears in no apparent distress. uncomfortable, Behavior is calm, cooperative. cm10 Neuro: No deficits noted. Level of Consciousness is awake, alert, obeys commands, Oriented to person, place, time, situation, Appropriate for age. Respiratory: No deficits noted. Airway is patent Respiratory effort is even, unlabored, Respiratory pattern is regular, symmetrical. Historical: - Allergies: 16:45 SHELLFISH; cm10 - PMHx: 16:45 Asthma; cm10 - PSHx: 16:45 back surgery; cm10 - Immunization history:: Adult Immunizations up to date. - Infectious Disease History:: Denies. - Social history:: Smoking status: Patient denies any tobacco usage or history of. Screenin:53 [facility] ED Fall Risk Assessment (Adult) History of falling in the last 3 months, cm10 including since admission No falls in past 3 months (0 pts) Confusion or Disorientation No (0 pts) Intoxicated or Sedated No (0 pts) Impaired Gait No (0 pts) Mobility Assist Device Used No (0 pt) Altered Elimination No (0 pt) Score/Fall Risk Level 0 - 2 = Low Risk Oriented to surroundings, Maintained a safe environment, Hourly rounding (assess needs \T\ fall precautionary measures) done. Abuse screen: Denies threats or abuse. Denies injuries from another. Nutritional screening: No deficits noted. Tuberculosis screening: No symptoms or risk factors identified. Vital Signs: 16:44 BP 160 / 92; Pulse 75; Resp 18; Temp 98.6(O); Pulse Ox 100% on R/A; Weight 93.89 kg; cm10 Height 5 ft. 11 in. ; Pain 6/10; 16:44 Body Mass Index 28.87 (93.89 kg, 180.34 cm) cm10 16:44 Pain Scale: Adult cm10 ED Course: 16:22 Patient arrived in ED. sj2 16:30 Shane Dozier FNP-C is [facility]. dr5 16:30 Sherrell Cosby MD is Attending Physician. dr5 16:45 Triage completed. cm10 16:45 Arm band placed on right wrist. Patient placed in an exam room, on a stretcher. cm10 16:52 Beverley Jessica RN is Primary Nurse. cm10 16:53 Patient has correct armband on for positive identification. Provided Education on: cm10 FOLLOW-UP INSTRUCTIONS. 16:53 No provider procedures requiring assistance completed. Patient did not have IV access cm10 during this emergency room visit. Administered Medications: 16:52 Drug: Dexamethasone IM 10 mg IM once Route: IM; Site: right gluteus; cm10 16:53 Follow up: Response: No adverse reaction cm10 Medication: 16:53 VIS not applicable for this client. cm10 Outcome: 16:49 Discharge ordered by MD. dr5 16:53 Discharged to home ambulatory, cm10 16:53 Condition: good 16:53 Discharge instructions given to patient, Instructed on discharge instructions, follow up and referral plans. medication usage, Demonstrated understanding of instructions, follow-up care, medications, Prescriptions given X 3, 16:54 Patient left the ED. cm10 Signatures: Beverley Jessica, STEPHANIE RN cm10 Ramiro Haile sj2 Shane Dozier FNP-C AUTOMATION TECHNICIAN-Cdr5
[2024-11-24 17:00] VITALS: BP 160/92; TEMP 98.6; O2SAT 100
== END 2024-11-24 16:54 | disposition home or self-care (01) ==
LOC: ER 16:18
DX: J01.80 Other acute sinusitis (principal)
CPT/HCPCS: 96372; 99284; J1100

== ENCOUNTER 2025-04-19 11:20 | Emergency (ER) | payer OTHER ==
[2025-04-19 12:32] LABS: Absolute Lymphocytes (CBC) 1.6 K/uL (0.7-4.9); Hematocrit 40.8 % (39.6-49.0); Hemoglobin 13.9 g/dL (13.6-17.9); MCH 28.1 pg (27.0-35.0); MCHC 34.0 g/dL (32.0-36.0); MCV 82.7 fL (80-100); MPV 10.2 fL (7.6-11.3); Nucleated RBC Absolute Count 0.0 (0-0); Nucleated Red Blood Cells % 0.1 % (0-0); RBC Red Blood Cell Count 4.93 M/uL (4.33-5.43); White Blood Count 3.80 thou/uL (4.3-10.9)
[2025-04-19 12:48] LABS: Anion Gap 8.9 mEq/L (5.0-15.0); BUN Blood Urea Nitrogen 12.0 mg/dL (7-18); Glucose Level 185.0 mg/dL (74-106); NT PRO-BNP 14.0 pg/mL (<125); Potassium 3.9 mEq/L (3.5-5.1); Troponin High Sensitivity 6.2 pg/mL (<58.9)
--- NOTE | 2025-04-19 13:18 | RAD REPORT ---
EXAM: Chest Single View HISTORY: 54 years Male CHEST PAIN COMPARISON: 01/01/22 FINDINGS: LUNGS/PLEURA: The lungs are clear. No pleural effusions or pneumothorax. No pulmonary edema. CARDIAC/MEDIASTINUM: The cardiac silhouette is within normal limits. UPPER ABDOMEN: No significant abnormality. BONES: No acute abnormality. LINES/TUBES/OTHER: N/A IMPRESSION: No evidence of acute cardiopulmonary disease.
--- NOTE | 2025-04-19 13:42 | ER ---
Nurse's Notes [facility] Name: Brian Feliz Age: 54 yrs Sex: Male : 1970 Arrival Date: 04/19/2025 Time: 11:20 Bed 17 [facility] MD: Diagnosis: Pain in left shoulder Presentation: 04/19 11:31 Chief complaint: Patient states: L anterior shoulder pain that radiates down to fingers me1 "sharp", /10. Denies injury. Denies SOB. Coronavirus screen: Vaccine status: Patient reports receiving the 2nd dose of the covid vaccine. Ebola Screen: No symptoms or risks identified at this time. Initial Sepsis Screen: Does the patient meet any 2 criteria? No. Patient's initial sepsis screen is negative. Does the patient have a suspected source of infection? No. Patient's initial sepsis screen is negative. Risk Assessment: Do you want to hurt yourself or someone else? Patient reports no desire to harm self or others. Onset of symptoms was April 19, 2025 at 03:30. 11:31 Method Of Arrival: Ambulatory [facility] 11:31 Acuity: JULIÁN 3 me1 Historical: - Allergies: 11:33 SHELLFISH; me1 - PMHx: 11:33 Asthma; me1 - PSHx: 11:33 back surgery; me1 - Immunization history:: Adult Immunizations up to date. - Infectious Disease History:: Denies. - Social history:: Smoking status: Patient denies any tobacco usage or history of. Screenin:20 [facility] ED Fall Risk Assessment (Adult) History of falling in the last 3 months, ll1 including since admission No falls in past 3 months (0 pts) Confusion or Disorientation No (0 pts) Intoxicated or Sedated No (0 pts) Impaired Gait No (0 pts) Mobility Assist Device Used No (0 pt) Altered Elimination No (0 pt) Score/Fall Risk Level 0 - 2 = Low Risk Maintained a safe environment, Hourly rounding (assess needs \\T\\ fall precautionary measures) done. Abuse screen: Denies threats or abuse. Nutritional screening: No deficits noted. Tuberculosis screening: No symptoms or risk factors identified. Assessment: 12:09 Reassessment: Patient and/or family updated on plan of care and expected duration. Pain ll1 level reassessed. 12:19 General: Appears uncomfortable, Behavior is calm, cooperative, appropriate for age. ll1 Pain: Complains of pain in left arm Quality of pain is described as aching. Neuro: No deficits noted. Musculoskeletal: Reports pain in left arm. 13:16 Reassessment: No changes from previously documented assessment. Patient and/or family ll1 updated on plan of care and expected duration. Pain level reassessed. Patient is alert, oriented x 3, equal unlabored respirations, skin warm/dry/pink. 14:00 Reassessment: No changes from previously documented assessment. Patient and/or family ll1 updated on plan of care and expected duration. Pain level reassessed. Patient is alert, oriented x 3, equal unlabored respirations, skin warm/dry/pink. Vital Signs: 11:31 BP 142 / 79; Pulse 76; Resp 16; Temp 98.2; Pulse Ox 99% ; Weight 94.35 kg; Height 5 ft. me1 11 in. ; Pain 8/10; 12:19 BP 120 / 75; Pulse 73; Resp 16; Pulse Ox 98% on R/A; ll1 13:06 BP 136 / 86; Pulse 65; Resp 16; Pulse Ox 98% ; ll1 14:00 BP 128 / 85; Pulse 66; Resp 16; Pulse Ox 98% ; ll1 11:31 Body Mass Index 29.01 (94.35 kg, 180.34 cm) me1 11:31 Pain Scale: Adult or1 ED Course: 11:24 Patient arrived in ED. cj3 11:33 Triage completed. me1 11:33 Arm band placed on Patient placed in an exam room. me1 11:34 [facility] Do[facility] FNP-C [facility]. dr5 11:34 Sherrell Cosby MD is Attending Physician. dr5 11:38 EKG done, by ED staff, reviewed by Shane THOMPSON. me1 12:09 Patient placed in an exam room, on a stretcher. ll1 12:18 Gus Harris, STEPHANIE is Primary Nurse. ll1 12:18 Initial lab(s) drawn, by ED staff, sent to lab. Inserted saline lock: 20 gauge in right ll1 forearm, using aseptic technique. Blood collected. Flushed with 10 mL NS. 12:19 Warm blanket given. ll1 12:20 Patient has correct armband on for positive identification. Bed in low position. ll1 Provided Education on: ER procedures and process. Client placed on continuous cardiac and pulse oximetry monitoring. NIBP monitoring applied. property assessment monitor on. 13:08 XRAY Chest (1 view) In Process Unspecified. EDMS 14:07 No provider procedures requiring assistance completed. IV discontinued, intact, ll1 bleeding controlled, No redness/swelling at site. Pressure dressing applied. Administered Medications: No medications were administered Medication: 12:20 VIS not applicable for this client. [facility] Outcome: 13:42 Discharge ordered by . eva 14:08 Discharged to home ambulatory, [facility] 14:08 Condition: stable 14:08 Discharge instructions given to patient, Instructed on discharge instructions, follow up and referral plans. medication usage, Demonstrated understanding of instructions, follow-up care, medications, Prescriptions given X 2, 14:08 Patient left the ED. [facility] Signatures: Dispatcher [employer] Gus Marcelo RN RN ll1 Keara Drew RN RN or1 Shane Dozier, GLOBAL TECHNICAL WRITER-C GLOBAL TECHNICAL WRITER-Cdr5 Perla Reyna 3
--- NOTE | 2025-04-19 13:42 | EDPHYS ---
Physician Documentation [facility] Name: Brian Feliz Age: 54 yrs Sex: Male : 1970 Arrival Date: 04/19/2025 Time: 11:20 Bed 17 Private MD: ED Physician Sherrell Cosby HPI: 04/19 14:33 This 54 yrs old Black Male presents to ER via Ambulatory with complaints of Arm Pain, dr5 Shoulder Pain. 14:33 The patient or guardian complains of pain, that is acute. The complaints affect the dr5 anterior aspect of left shoulder. Onset: The symptoms/episode began/occurred acutely. Patient is a 54-year-old male with history of asthma coming in with left arm pain that started at 0330 this morning. Patient reports that he took aspirin an hour afterwards which relieved his symptoms. Patient reports this happened for the past. Patient states that he was working out in the yard when the pain came back. Patient states that since he has been in the ER his chest pain has resolved and not feeling any pain.. Historical: - Allergies: 11:33 SHELLFISH; me1 - PMHx: 11:33 Asthma; me1 - PSHx: 11:33 back surgery; me1 - Immunization history:: Adult Immunizations up to date. - Infectious Disease History:: Denies. - Social history:: Smoking status: Patient denies any tobacco usage or history of. ROS: 14:33 Constitutional: as per hpi dr5 Exam: 14:33 Constitutional: This is a well developed, well nourished patient who is awake, alert, dr5 and in no acute distress. Head/Face: Normocephalic, atraumatic. Eyes: Pupils equal round and reactive to light, extra-ocular motions intact. Lids and lashes normal. Conjunctiva and sclera are non-icteric and not injected. Cornea within normal limits. Periorbital areas with no swelling, redness, or edema. ENT: Nares patent. No nasal discharge, no septal abnormalities noted. Tympanic membranes are normal and external auditory canals are clear. Oropharynx with no redness, swelling, or masses, exudates, or evidence of obstruction, uvula midline. Mucous membranes moist. Chest/axilla: Normal chest wall appearance and motion. Nontender with no deformity. No lesions are appreciated. Cardiovascular: Regular rate and rhythm with a normal S1 and S2. Normal PMI, no JVD. No pulse deficits. Respiratory: Lungs have equal breath sounds bilaterally, clear to auscultation. No rales, rhonchi or wheezes noted. No increased work of breathing, no retractions or nasal flaring. Abdomen/GI: Soft, non-tender, non-distended Back: No spinal tenderness. No costovertebral tenderness. Full range of motion. Skin: Warm, dry with normal turgor. Normal color with no rashes, no lesions, and no evidence of cellulitis. MS/ Extremity: Pulses equal, no cyanosis. Neurovascular intact. Full, normal range of motion. Neuro: Awake and alert, GCS 15, oriented to person, place, time, and situation. Cranial nerves II-XII grossly intact. Motor strength 5/5 in all extremities. Sensory grossly intact. Cerebellar exam normal. Normal gait. Vital Signs: 11:31 BP 142 / 79; Pulse 76; Resp 16; Temp 98.2; Pulse Ox 99% ; Weight 94.35 kg; Height 5 ft. me1 11 in. ; Pain 8/10; 12:19 BP 120 / 75; Pulse 73; Resp 16; Pulse Ox 98% on R/A; ll1 13:06 BP 136 / 86; Pulse 65; Resp 16; Pulse Ox 98% ; ll1 14:00 BP 128 / 85; Pulse 66; Resp 16; Pulse Ox 98% ; ll1 11:31 Body Mass Index 29.01 (94.35 kg, 180.34 cm) me1 11:31 Pain Scale: Adult me1 MDM: 11:35 Medical Screening Exam initiated dr5 14:33 Differential diagnosis: abrasion, STEMI, NSTEMI, costochondritis, fracture, new onset dr5 CHF, electrolyte abnormality. Data reviewed: vital signs, nurses notes, lab test result(s), CBC, white blood cell count, hemoglobin, hematocrit, platelets, electrolytes, sodium, potassium, chloride, serum bicarbonate, BUN, creatinine, serum glucose, BNP, EKG, radiologic studies, plain films. Consideration of Admission/Observation Escalation of care including admission/observation considered. Admission considered if patient have chest pain in ER or elevated troponin. I considered the following discharge prescriptions or medication management in the emergency department. Independent interpretation of the following test(s) in the Emergency Department patient monitor: rate is 66 beats/min, Rhythm is normal sinus rhythm, regular, with no ectopy, Interpretation: normal rate, normal rhythm. Care significantly affected by the following chronic conditions: Asthma. Care significantly affected by the following Social Determinants of Health: Poor access to healthcare and/or lack of insurance, Poor access to transportation, Problems related to employment. Counseling: I had a detailed discussion with the patient and/or guardian regarding the historical points, exam findings, and any diagnostic results supporting the discharge/admit diagnosis, the presence of at least one elevated blood pressure reading (>120/80) during this emergency department visit, lab results, radiology results, the need for outpatient follow up, for definitive care, a family practitioner, to return to the emergency department if symptoms worsen or persist or if there are any questions or concerns that arise at home. Response to treatment: the patient is now symptom free. Special discussion: I discussed with the patient/guardian in detail that at this point there is no indication for admission to the hospital. It is understood, however, that if the symptoms persist or worsen the patient needs to return immediately for re-evaluation. Based on the history and exam findings, there is no indication for further emergent testing or inpatient evaluation. I discussed with the patient/guardian the need to see the primary care provider for further evaluation of the symptoms. ED course: No chest pain during entire ER stay. Patient reports he is feeling much better than he was this morning. Recommended patient follow-up primary care doctor this next week. All labs and results printed and given to patient to take with him to his follow-up ointment. All questions answered. Strict ER precautions given.. 04/19 11:53 Order name: Basic Metabolic Panel; Complete Time: 13:10 [facility] 04/19 11:53 Order name: CBC with Diff; Complete Time: 12:36 [facility] 04/19 11:53 Order name: NT PRO-BNP; Complete Time: 13:10 [facility] 04/19 11:53 Order name: Troponin HS; Complete Time: 13:10 [facility] 04/19 11:53 Order name: XRAY Chest (1 view); Complete Time: 13:40 [facility] 04/19 11:53 Order name: EKG; Complete Time: 11:54 [facility] 04/19 11:53 Order name: Cardiac monitoring; Complete Time: 12:11 [facility] 04/19 11:53 Order name: EKG - Nurse/Tech; Complete Time: 12:11 [facility] 04/19 11:53 Order name: IV Saline Lock; Complete Time: 12: dr5 04/19 11:53 Order name: Labs collected and sent; Complete Time: 12: dr5 04/19 11:53 Order name: O2 Per Protocol; Complete Time: 12: dr5 04/19 11:53 Order name: O2 Sat Monitoring; Complete Time: 12: dr5 EC:37 Rate is 79 beats/min. Rhythm is regular. QRS [place] is Normal. AR interval is normal at dr5 154 msec. QRS interval is normal at 94 msec. QT interval is normal at 380 msec. Clinical impression: Normal ECG and No evidence of ischemia. Administered Medications: No medications were administered Disposition Summary: 04/19/25 13:42 Discharge Ordered Notes: Location: Home dr5 Condition: Stable dr5 Diagnosis - Pain in left shoulder dr5 Followup: dr5 - With: Emergency Department - When: As needed - Reason: Worsening of condition Followup: dr5 - With: Private Physician - When: 1 - 2 days - Reason: Recheck today's complaints, Continuance of care, Re-evaluation by your physician Discharge Instructions: - Discharge Summary Sheet dr5 - Shoulder Pain dr5 Forms: - Medication Reconciliation Form dr5 - Patient Portal Instructions dr5 - Leadership Thank You Letter dr5 Prescriptions: - Cyclobenzaprine 10 mg Oral Tablet - take 1 tablet ORAL route every 8 hours As needed; 30 tablet; Refills: 0, dr5 Product Selection Permitted - Medrol (Hao) 4 mg Oral Tablets, Dose Pack - take 1 tablet ORAL route as directed - follow package instructions; 1 packet; dr5 Refills: 0, Product Selection Permitted Signatures: Dispatcher [employer] Keara Berry RN RN me1 Shane Dozier, GRAD INTERN-C GRAD INTERN-Cdr5
[2025-04-19 14:32] VITALS: TEMP 98.2
[2025-04-19 14:33] VITALS: O2SAT 98
[2025-04-19 14:34] VITALS: BP 136/86
== END 2025-04-19 14:08 | disposition home or self-care (01) ==
LOC: ER 11:20
DX: M25.512 Pain in left shoulder (principal)
CPT/HCPCS: 36415; 71045; 80048; 83880; 84484; 85025; 93005; 99284